=== PATIENT | female | born 1980 | race Caucasian/White ===

== ENCOUNTER 2017-08-28 03:09 | Emergency (ER) | payer OTHER ==
[~2017-08-28] VITALS: Ht 175.3 cm; Wt 113.4 kg
[~2017-08-28 03:09] MED LIST: AMLODIPINE BESY10 MG PO; CLONIDINE0.1 PO; COZAAR 25 MG TA25 M1 PO; INSULIN PUMP; LEVEMIR SUBQ; MAXZIDE-25 MG1 EACH PO; NOVOLIN N100 UNIT/1 SQ; PRINIVIL20 MG PO; PROCARDIA XL60 MG PO; TESSALON PERLE100 MG PO
[2017-08-28] MEDS ORDERED: METOPROLOL (03:17)
[2017-08-28] MEDS ORDERED: LISINOPRIL (03:17)
[2017-08-28 03:34] LABS: ABSOLUTE EOSINOPHILS 0.2 thou/uL (0.0-0.7); ABSOLUTE MONOCYTES 0.6 thou/uL (0.0-1.2); ABSOLUTE NEUTROPHILS 5.9 thou/uL (1.6-8.1); BASOPHILS 0.4 %; EOSINOPHILS 2.4 %; HEMATOCRIT 35.7 % (37.0-47.0); LYMPHOCYTES 23.1 %; MCH 31.2 pg (26.0-34.0); MCHC 33.7 g/dL (28.0-37.0); MCV 92.5 fL (80.0-100.0); MONOCYTES 6.7 %; MPV 7.5 fl. (7.2-11.1); NUCLEATED RBCS 0 /100WBC; PLATELET COUNT* 318 thou/uL (150-400); POLYS 67.4 %; RBC 3.87 mil/uL (4.20-5.00); RDW-CV 13.5 % (10.5-14.5); WBC 8.7 thou/uL (4.0-11.0)
[2017-08-28 03:43] LABS: ANION GAP 7 mmol/L (7-16); BUN 26 mg/dL (7-18); CALCIUM 8.4 mg/dL (8.5-10.1); CHLORIDE 107 mmol/L (98-107); CO2 26 mmol/L (21-32); CREATININE 1.5 mg/dL (0.6-1.3); GLUCOSE 336 mg/dL (70-99); POTASSIUM 4.3 mmol/L (3.5-5.1); SODIUM 140 mmol/L (136-145)
[2017-08-28 03:48] LABS: ALBUMIN 2.5 g/dL (3.4-5.0); ALKALINE PHOSPHATASE 71 U/L (46-116); SGOT 28 U/L (15-37); SGPT 44 U/L (30-65); TOTAL BILIRUBIN 0.8 mg/dL (<0.1-1.0); TOTAL PROTEIN 6.3 g/dL (6.4-8.2)
[2017-08-28] MEDS ORDERED: NORCO 5-325 TA1 EACH PO (04:06)
[2017-08-28] MEDS ORDERED: ZOFRAN ODT4 MG SUBLING (04:06)
[2017-08-28 04:12] VITALS: BP 155/108
== END 2017-08-28 04:17 | disposition home or self-care (01) ==
LOC: M.ERS 03:09
PROVIDERS: Family Medicine
DX: R51 Headache (principal); I10 Essential (primary) hypertension; E11.8 Type 2 diabetes mellitus with unspecified complications; Z88.8 Allergy status to other drugs, medicaments and biological substances; Z79.4 Long term (current) use of insulin

== ENCOUNTER 2018-01-20 03:20 | Emergency (ER) | payer OTHER ==
[~2018-01-20] VITALS: Ht 175.3 cm; Wt 120.2 kg
[~2018-01-20 03:20] MED LIST changes: +LISINOPRIL; +METOPROLOL; +NORCO 5-325 TA1 EACH PO; +ZOFRAN ODT4 MG SUBLING
[2018-01-20] MEDS ORDERED: LIPITOR10 MG PO (03:34)
[2018-01-20 03:46] LABS: ABSOLUTE EOSINOPHILS 0.4 thou/uL (0.0-0.7); ABSOLUTE LYMPHOCYTES 2.9 thou/uL (0.8-5.3); ABSOLUTE MONOCYTES 0.7 thou/uL (0.0-1.2); ABSOLUTE NEUTROPHILS 5.6 thou/uL (1.6-8.1); BASOPHILS 0.4 %; EOSINOPHILS 3.7 %; HEMATOCRIT 36.9 % (37.0-47.0); HEMOGLOBIN 12.3 gm/dL (12.0-15.0); LYMPHOCYTES 30.2 %; MCH 30.5 pg (26.0-34.0); MCHC 33.3 g/dL (28.0-37.0); MCV 91.7 fL (80.0-100.0); MONOCYTES 6.9 %; MPV 7.4 fl. (7.2-11.1); NUCLEATED RBCS 0 /100WBC; PLATELET COUNT* 321 thou/uL (150-400); POLYS 58.8 %; RBC 4.02 mil/uL (4.20-5.00); RDW-CV 13.7 % (10.5-14.5); WBC 9.6 thou/uL (4.0-11.0)
[2018-01-20 03:54] LABS: ANION GAP 6 mmol/L (7-16); BUN 28 mg/dL (7-18); CALCIUM 8.6 mg/dL (8.5-10.1); CHLORIDE 106 mmol/L (98-107); CO2 26 mmol/L (21-32); CREATININE 2.2 mg/dL (0.6-1.3); GLUCOSE 180 mg/dL (70-99); POTASSIUM 3.9 mmol/L (3.5-5.1); SODIUM 138 mmol/L (136-145)
[2018-01-20 03:59] LABS: ALBUMIN 2.6 g/dL (3.4-5.0); ALKALINE PHOSPHATASE 73 U/L (46-116); SGOT 28 U/L (15-37); SGPT 57 U/L (30-65); TOTAL BILIRUBIN 0.6 mg/dL (<0.1-1.0); TOTAL PROTEIN 6.6 g/dL (6.4-8.2)
[2018-01-20 06:21] VITALS: BP 187/97
== END 2018-01-20 06:21 | disposition home or self-care (01) ==
LOC: M.ERS 03:20
PROVIDERS: Family Medicine
DX: R51 Headache (principal); R11.2 Nausea with vomiting, unspecified; E11.9 Type 2 diabetes mellitus without complications; I10 Essential (primary) hypertension; Z88.8 Allergy status to other drugs, medicaments and biological substances

== ENCOUNTER → 2018-05-18 | Outpatient (CLI) | payer OTHER ==
[~2018-05-18] MED LIST changes: +LIPITOR10 MG PO
[2018-05-18 14:33] LABS: CALCIUM 8.8 mg/dL (8.5-10.1); CREATININE 2.6 mg/dL (0.6-1.3); POTASSIUM 4.9 mmol/L (3.5-5.1)
== END ==
LOC: M.LAB 14:07
PROVIDERS: Nurse Practitioner
DX: I10 Essential (primary) hypertension (principal)

== ENCOUNTER → 2018-05-25 | Outpatient (CLI) | payer OTHER | LOC: M.ULTRA 10:53 | DX: I65.23 Occlusion and stenosis of bilateral carotid arteries (principal) ==

== ENCOUNTER 2018-06-26 02:04 | Inpatient (IN) | payer OTHER, MEDICARE ==
[~2018-06-26] VITALS: Ht 175.3 cm; Wt 127.0 kg
[~2018-06-26 02:04] MED LIST changes: -METOPROLOL; +METOPROLOL SUC100 MG PO
[2018-06-26 02:08] VITALS: BP 181/95
[2018-06-26 02:33] LABS: ABSOLUTE BASOPHILS 0.1 thou/uL (0.0-0.2); ABSOLUTE EOSINOPHILS 0.2 thou/uL (0.0-0.7); ABSOLUTE LYMPHOCYTES 1.4 thou/uL (0.8-5.3); ABSOLUTE MONOCYTES 0.5 thou/uL (0.0-1.2); ABSOLUTE NEUTROPHILS 10.6 thou/uL (1.6-8.1); BASOPHILS 0.5 %; EOSINOPHILS 1.7 %; HEMATOCRIT 34.9 % (37.0-47.0); HEMOGLOBIN 11.8 gm/dL (12.0-15.0); LYMPHOCYTES 10.6 %; MCH 30.1 pg (26.0-34.0); MCHC 33.8 g/dL (28.0-37.0); MONOCYTES 3.7 %; MPV 7.4 fl. (7.2-11.1); NUCLEATED RBCS 0 /100WBC; PLATELET COUNT* 266 thou/uL (150-400); POLYS 83.5 %; RBC 3.93 mil/uL (4.20-5.00); RDW-CV 13.8 % (10.5-14.5); WBC 12.8 thou/uL (4.0-11.0)
[2018-06-26 02:57] LABS: ANION GAP 5 mmol/L (7-16); BUN 29 mg/dL (7-18); CALCIUM 8.4 mg/dL (8.5-10.1); CHLORIDE 105 mmol/L (98-107); CO2 27 mmol/L (21-32); CREATININE 2.9 mg/dL (0.6-1.3); GLUCOSE 196 mg/dL (70-99); POTASSIUM 4.7 mmol/L (3.5-5.1); SODIUM 137 mmol/L (136-145)
[2018-06-26 03:00] LABS: BE -10.5 mmol/L (-2 to +3); HCO3 14.3 mmol/L (22.0-26.0); pH 7.343 (7.340-7.450)
[2018-06-26 03:01] LABS: ALBUMIN 2.1 g/dL (3.4-5.0); ALKALINE PHOSPHATASE 92 U/L (46-116); LIPASE 82 U/L (73-393); SGOT 26 U/L (15-37); SGPT 33 U/L (30-65); TOTAL BILIRUBIN 0.5 mg/dL (<0.1-1.0); TOTAL PROTEIN 6.4 g/dL (6.4-8.2)
[2018-06-26 03:55] LABS: URINE BILIRUBIN NEGATIVE (Negative); URINE BLOOD 2+ (Negative); URINE CLARITY CLEAR; URINE COLOR YELLOW; URINE GLUCOSE-RANDOM 2+ (Negative); URINE KETONES NEGATIVE (Negative); URINE LEUKOCYTES-REFLEX NEGATIVE (Negative); URINE NITRITE-REFLEX NEGATIVE (Negative); URINE PROTEIN 3+ (Negative); URINE SPECIFIC GRAVITY 1.025 (1.005-1.030); URINE UROBILINOGEN 0.2 E.U./dl (0.2-1.0)
[2018-06-26 04:08] LABS: FINE GRANULAR CASTS 0-3 Few /LPF (None Seen); HYALINE CASTS 0-3 Few /LPF (None Seen); MUCUS 4-6 Moderate strn/LPF (None Seen); RBC CASTS 0-3 /LPF; SQUAMOUS 0-3 Few /LPF (0-3); TRANSITIONAL EPITHEL CELL 0-3 Few /LPF (None Seen); URINE WBC-REFLEX 0-5 Rare /HPF (0-5)
[2018-06-26 04:09] LABS: CRYSTALS None Seen /LPF (None Seen)
[2018-06-26 05:10] VITALS: BP 164/85
--- NOTE | 2018-06-26 07:33 | NUR ---
PT ARRIVED VIA STRETCHER FROM ED AT 0510 ADMITTED TO ROOM 304, PT IS ABULATORY WITH A STEADY GAIT, DENIES PAIN, DENIES NAUSEA VOMITING, ADMISSION ASSESSMENT COMPLETE, PT INTRODUCED TO SURROUNDINGS, ICE AND WATER PROVIDED, PT IN BED RESTING, NEPHROLOGY CONSULT HAS BEEN CALLED BY THIS NURSE AT 0730, DR GRIFFITHS EXPECTED TO SEE THIS PT TODAY
[2018-06-26 08:06] VITALS: BP 190/93
[2018-06-26 09:58] VITALS: BP 160/92
--- NOTE | 2018-06-26 11:20 | EKG ---
[place] [address] ELECTROCARDIOGRAM REPORT Name: NIYAELOINATARA HEATON Room: [address] ADM IN .R.#: [id number] Admission: 06/26/18 Attend Phys: Micheal Frederick, Discharge: Date of : 80 Report #: [id number] THIS REPORT FOR: //name// [facility] Test Date: 2018-06-26 Test Time: 10:12:28 Pat Name: TARA ALLRED Department: Room: [address] Gender: F Space And Storage Clerk: FAIZAN : 1980 Requested By: Joaquin Singh Order Number: [id number] Marnie MD: Jeet Nicole Measurements Intervals [place] Rate: 94 P: 67 WI: 178 QRS: 81 QRSD: 88 T: 31 QT: 392 QTc: 491 Interpretive Statements Sinus rhythm Probable left atrial enlargement Borderline prolonged QT interval Compared to ECG 06/02/2017 06:03:29 No significant changes Electronically Signed On 06-26-2018 11:20:09 AIR QUALITY INSTRUMENT SPECIALIST by Jeet Nicole [email or web address] <ELECTRONICALLY SIGNED> By: Jeet Nicole MD, [facility] 06/26/18 1120 1012 1012 Jeet Nicole MD, [facility] /EPI
[2018-06-26 16:00] VITALS: BP 198/102
--- NOTE | 2018-06-26 17:41 | NUR ---
PATIENT SOMEWHAT PROGRESSING TOWARDS GOALS. AOX4, COOPERATIVE, PLEASANT. DENIES PAIN THROUGHOUT SHIFT. SOME NAUSEA NOTED. ZOFRAN GIVEN Q4H PRN. NEPHROLOGY CONSULTED. LABS ORDERED AND COMPLETED, RENAL US AND DOPPLER TO BE COMPLETED TOMORROW. PATIENT BLOOD GLUCOSE LEVELS CONTINUE TO RISE. PATIENT REFUSING SUBQ INSULIN ADMINISTRATION, WANTS TO USE HER PUMP. THIS EVENING PATIENT STATED SHE THINKS HE PUMP IS LEAKING AND THATS WHY HER BLOOD SUGARS CONTINUE TO RISE. STATED HER DAUGHTER WILL BE BRINGING UP SUPPLIES TO FIX PUMP AND SHE CONTINUES TO REFUSE SUBQ INSULIN AT THIS TIME. PATIENT REPORTING HEART BURN. PANTOPRAZOLE, PEPCID, AND TUMS GIVEN. AWAITING PATIENT REPORT OF RELIEF.
[2018-06-26 20:30] VITALS: BP 149/78
--- NOTE | 2018-06-27 05:39 | NUR ---
PT SLEPT ON AND OFF OVERNIGHT. HAS DENIED N/V OR PAIN. ACCUCHECKS OBTAINED AND PT USING IMPLANTED INSULIN PUMP TO ADMINISTER INSULIN SHE WISHES. LATEST ACCUCHECK 0200 185. AM LABS. NPO SINCE MIDNIGHT FOR KIDNEY ULTRASOUND/DOPPLER TODAY. NEPHROLOGY CONSULTING. ABLE TO USE CALL LITE AND MAKE NEEDS KNOWN.
[2018-06-27] MEDS ORDERED: CLONIDINE0.1 PO (07:39)
[2018-06-27 07:58] LABS: ALBUMIN 1.7 g/dL (3.4-5.0); CALCIUM 8.3 mg/dL (8.5-10.1); PHOSPHORUS* 3.2 mg/dL (2.5-4.9); POTASSIUM 4.3 mmol/L (3.5-5.1)
[2018-06-27 08:00] VITALS: BP 192/101
--- NOTE | 2018-06-27 15:02 | NUR ---
Nutrition: Consult received. RD spoke with pt's RN today. Awaiting testing for ?lupus. Renal FXN was worsening. Pt is eating 100% of CHO controlled diet. Uses insulin pump. BG WNL, alb 1.7, prealb 20.8. No nutrition interventions needed at this time. Low risk.
[2018-06-27 15:46] VITALS: BP 171/86
--- NOTE | 2018-06-27 17:15 | NUR ---
PT PROGRESSING TOWARDS GOALS THIS SHIFT. RENAL US COMPLETED. REFER TO RESULTS. IVF INFUSING WITHOUT DIFFICULTY. STRICT I&O'S. BLADDER SCAN COMPLETED FOR POST VOID RESIDUAL AND WAS NEGATIVE FOR ANY URINE RETENTION. NO OTHER CONCERNS AT THIS TIME. CLWR. WCTM.
--- NOTE | 2018-06-27 17:22 | 2DMMODE ---
[place] [address] 2 D/M-MODE ECHOCARDIOGRAM Name: JOCELINEEDUARDOTARA SUDARSHAN Room: [address] IN .R.#: [id number] Admission: 06/26/18 Attend Phys: Micheal Melissa Discharge: Date of : 80 Date of Service: 06/27/18 1722 Report #: [id number] THIS REPORT FOR: //name// APPROVED REPORT Study performed: 06/27/2018 15:28:34 EXAM: Comprehensive 2D, Doppler, and color-flow Echocardiogram Patient Location: Bedside BSA: 2.38 HR: 73 bpm BP: 149/78 mmHg Other Information Study Quality: Good Indications Murmur 2D Dimensions IVSd: 16.77 (7-11mm) LVOT Diam: 16.57 (18-24mm) LVDd: 43.01 mm PWd: 12.99 (7-11mm) Ascending Ao: 31.87 (22-36mm) LVDs: 27.99 (25-40mm) Aortic Root: 28.97 mm Volumes Left Atrial Volume (Systole) LA ESV Index: 24.40 mL/m2 Aortic Valve AoV Peak Milton.: 1.65 m/s AO Peak Gr.: 10.89 mmHg LVOT Max P.01 mmHg AO Mean Gr.: 5.99 mmHg LVOT Mean P.21 mmHg LVOT Max V: 1.66 m/s AO V2 VTI: 33.16 cm LVOT Mean V: 1.04 m/s ROSEMARIE (VTI): 2.17 cm2 LVOT V1 VTI: 33.42 cm Mitral Valve E/A Ratio: 0.98 MV Decel. Time: 219.63 ms MV E Max Milton.: 0.87 m/s MV PHT: 63.69 ms MVA (PHT): 3.45 [place] [address] 2 D/M-MODE ECHOCARDIOGRAM Name: TARA ALLRED Room: [address] IN [facility]#: [id number] Admission: 06/26/18 Attend Phys: Micheal Melissa Discharge: Date of : 80 Date of Service: 06/27/18 1722 Report #: [id number] TDI E/Lateral E': 10.88 E/Medial E': 10.88 Medial E' Milton.: 0.08 m/s Lateral E' Milton.: 0.08 m/s Pulmonary Valve PV Peak Milton.: 1.25 m/s PV Peak Gr.: 6.29 mmHg Tricuspid Valve RAP Estimate: 5.00 mmHg TR Peak Gr.: 36.16 mmHg RVSP: 41.16 mmHg PA Pressure: 41.16 mmHg Left Ventricle The left ventricle is normal size. There is normal LV segmental wall motion. Moderate concentric left ventricular hypertrophy. Left ventricular systolic function is normal. The left ventricular ejection fraction is within the normal range. LVEF is 60-65%. Grade I - abnormal relaxation pattern. Right Ventricle The right ventricle is normal size. The right ventricular systolic function is normal. Atria Left atrium is moderately dilated. Right atrium is mildly dilated. Aortic Valve The aortic valve is normal in structure. No aortic regurgitation is present. There is no aortic valvular stenosis. Mitral Valve The mitral valve is normal in structure. Trace mitral regurgitation. No evidence of mitral valve stenosis. Tricuspid Valve The tricuspid valve is normal in structure. Trace tricuspid regurgitation. Pulmonic Valve The pulmonary valve is normal in structure. Trace pulmonic regurgitation[place] [address] 2 D/M-MODE ECHOCARDIOGRAM Name: CHALINOTARARhonda HEATON Room: [address] IN [facility]#: [id number] Admission: 06/26/18 Attend Phys: Micheal Melissa Discharge: Date of : 80 Date of Service: 06/27/18 1722 Report #: [id number] The aortic root is normal in size. IVC is normal in size and collapses >50% with inspiration. Pericardium There is no pericardial effusion. <Conclusion> The left ventricle is normal size. Moderate concentric left ventricular hypertrophy. Left ventricular systolic function is normal. The left ventricular ejection fraction is within the normal range. LVEF is 60-65%. Grade I - abnormal relaxation pattern. The right ventricle is normal size. Left atrium is moderately dilated. The aortic valve is normal in structure. The mitral valve is normal in structure. Trace mitral regurgitation. The tricuspid valve is normal in structure. IVC is normal in size and collapses >50% with inspiration. There is no pericardial effusion. There is normal LV segmental wall motion. <ELECTRONICALLY SIGNED> By: Jeet Nicole MD, FACC 06/27/181721 21 21 Jeet Nicole MD, FACC /INF
[2018-06-27 21:00] VITALS: BP 194/96
--- NOTE | 2018-06-27 22:59 | NUR ---
INITAL ASSESMENT COMPLETED AT 2100. PT DENIED PAIN OR DISCOMFORT AT THAT TIME. PT DENIED NAUSEA. ACCU CHECK 196. PT REGULATES HER OWN INSULIN VIA INSULIN PUMP. PT INFUSED 1.8 UNITS.
[2018-06-28 00:30] VITALS: BP 138/59
[2018-06-28 04:00] VITALS: BP 166/75
[2018-06-28 05:30] VITALS: BP 157/85
[2018-06-28 08:00] VITALS: BP 195/98
[2018-06-28 13:11] LABS: CALCIUM 8.5 mg/dL (8.5-10.1); POTASSIUM 4.5 mmol/L (3.5-5.1)
--- NOTE | 2018-06-28 13:51 | NUR ---
CALL PLACED TO DR RIVERO REGARDING URINE CULTURE RESULTS, NO NEW ORDERS.
[2018-06-28 16:41] VITALS: BP 140/75
[2018-06-28 19:39] VITALS: BP 125/65
[2018-06-29] VITALS: BP 168/86
--- NOTE | 2018-06-29 00:06 | NUR ---
KEO SPARROW COMPLETED AT 1930. PT'S IV IN LEFT WRIST INFILTRATED. IV DICONTINUED. 22 GUAGE SALINE LOCK TARTED IN RIGHT AC AFTER MULTIPLE ATTEMPTS. CALL LIGHT REACH, PT USING APPROPRIATELY.
[2018-06-29 01:00] VITALS: BP 129/65
[2018-06-29 04:30] VITALS: BP 149/63
--- NOTE | 2018-06-29 06:09 | NUR ---
PT AWAKE AT 0430 REPORTING NOT FEELING WELL. VITAL SIGNS OBTAINED AND ACCU CHECK DONE. PT'S BLOOD SUGAR 62 PER GLUCOMETER. PT GIVEN APPLE JUICE AND GRAHM CRACKERS. BLOOD SUGAR RECHECKED. PT WITHIN RANGE. VITAL SIGNS WITHIN NORMAL LIMITS. WILL CONTINUE TO MONITOR.
[2018-06-29 07:40] LABS: CALCIUM 7.9 mg/dL (8.5-10.1); CREATININE 3.1 mg/dL (0.6-1.3); POTASSIUM 4.4 mmol/L (3.5-5.1)
[2018-06-29 07:55] VITALS: BP 170/84
[2018-06-29 09:07] LABS: GLOMERULR BASEM MEMBRN AB 2 units (0-20)
[2018-06-29 11:10] LABS: ANTI-DNA SCREEN 5 IU/mL (0-9); ANTI-RNP <0.2 AI (0.0-0.9)
--- NOTE | 2018-06-29 12:33 | NUR ---
SW met with pt to complete initial assessment, introduce self, and pt known to SW. Pt father Moi in the room. Pt lives at home, normally independent with a good support system. No needs anticipated at this time.
[2018-06-29 15:56] VITALS: BP 132/73
--- NOTE | 2018-06-29 18:07 | NUR ---
PATIENT RESTING UP IN CHAIR. PATIENT HAS COMPLAINTS OF SWELLING TO LEGS. IV FLUIDS STOPPED AND ADVISED TO ELEVATE LEGS. PATIENT DENIES ANY PAIN. PATIENT USES INSULIN PUMP. PATIENT DENIES ANY NEEDS AT THIS TIME. CALL LIGHT WITHIN REACH. WILL CONTINUE TO MONITOR.
[2018-06-29 22:59] VITALS: BP 131/64
[2018-06-30] VITALS (21 sets, daily range): BP systolic 106–212; BP diastolic 57–99
--- NOTE | 2018-06-30 05:21 | NUR ---
PT SLEPT WELL THE FIRST PART OF SHIFT, AWAKE AND UP AD LUIS EARLY THIS MORNING. DENIES PAIN OR PROBLEMS. HAS BEEN NPO SINCE MIDNIGHT EXCEPT MED WITH SIP FOR IR RENAL BIOPSY TODAY. JORGE LUIS UNGER. ABLE TO USE CALL LITE AND MAKE NEEDS KNOWN. HS ACCUCHECK 90'S, NO INSULIN GIVEN.
[2018-06-30] MEDS ORDERED: NORVASC10 MG PO (12:48)
[2018-06-30] MEDS ORDERED: PANTOPRAZOLE SO40 M1 PO (12:48)
[2018-06-30] MEDS ORDERED: HYDRALAZINE 2525 MG PO ×2 (12:48→13:06)
[2018-06-30] MEDS ORDERED: PHENERGAN 25 MG25 M1 PO (12:48)
[2018-06-30] MEDS ORDERED: ONDANSETRON HCL4 M2 PO (12:48)
[2018-06-30] MEDS ORDERED: COMPAZINE10 MG PO (13:05)
--- NOTE | 2018-06-30 18:47 | NUR ---
PATIENT RESTING UP IN CHAIR. PATIENT HAD RENAL BIOPSY TODAY. PATIENT HAD COMPLAINTS OF SHORTNESS OF BREATH AND HYPOTENSION, IR NOTIFIED OF SYMPTOMS, NO NEW ORDERS. PATIENT DENIES ANY SHORTNESS OF BREATH AT THIS TIME AND BLOOD PRESSURE IS UP. PATIENT HAS GOOD APPETITE. PATIENT DENIES ANY NEEDS AT THIS TIME. CALL LIGHT WITHIN REACH. WILL CONTINUE TO MONITOR.
--- NOTE | 2018-07-01 05:27 | NUR ---
PT SLEPT WELL OVERNIGHT, RECEIVING TYLENOL AT HS FOR HEADACHE. AM LABS DRAWN. CASSIG CDI TO L FLANK RENAL BX SITE. UP AD LUIS IN ROOM. JORGE LUIS UNGER. HS ACCUCHECK 177, USING OWN INSULIN PUMP. ABLE TO USE CALL LITE AND MAKE NEEDS KNOWN. POSSIBLE DC HOME TODAY. AT BEDSIDE OVERNIGHT.
[2018-07-01 08:00] VITALS: BP 133/66; BP 155/65
[2018-07-01] MEDS ORDERED: HYDRALAZINE 2525 MG PO (11:08)
[2018-07-01 11:24] LABS: HEMATOCRIT 30.2 % (37.0-47.0); HEMOGLOBIN 10.2 gm/dL (12.0-15.0); MCH 30.6 pg (26.0-34.0); MCHC 33.7 g/dL (28.0-37.0); MCV 90.6 fL (80.0-100.0); MPV 7.7 fl. (7.2-11.1); RBC 3.34 mil/uL (4.20-5.00); RDW-CV 13.8 % (10.5-14.5); WBC 9.6 thou/uL (4.0-11.0)
[2018-07-01 11:38] LABS: CALCIUM 8.1 mg/dL (8.5-10.1); CREATININE 3.2 mg/dL (0.6-1.3); POTASSIUM 4.9 mmol/L (3.5-5.1)
[2018-07-01 12:08] VITALS: BP 145/66
--- NOTE | 2018-07-01 14:15 | NUR ---
DISCHARGE NOTE - REVIEWED DISCHARGE INSTRUCTIONS WITH PT. NO QUESTIONS. IV REMOVED S DIFFICULTY. ALL BELONGINGS SENT WITH PT.
--- NOTE | 2018-07-04 10:28 | CON ---
[address] [address] CONSULTATION Name: TARA ALLRED SUDARSHAN Room: [address] IN ..#: [id number] Admission: 06/26/18 Attend Phys: Micheal Frederick, Discharge: 07/01/18 Date of : 80 Report #: [id number] THIS REPORT FOR: //name// CC: Carol Frederick CONSULTING PHYSICIAN: Dr. Frederick. REASON FOR CONSULTATION: Acute kidney injury. HISTORY OF PRESENT ILLNESS: A 38-year-old female with a history of type 1 diabetes, admitted with persistent nausea and vomiting. Sugars have been poorly controlled. She is on numerous blood pressure medications and her blood pressures have been high. She attributes this to not being able to keep her medicines down. She denies any NSAID use. No new medications or antibiotics. No diarrhea and has no known underlying history of chronic kidney disease, appears to be comfortable at present time, has no other complaints. REVIEW OF SYSTEMS: Constitutional, psych, heme, eyes, ENT, respiratory, cardiac, GI, , endocrine, all negative except as documented above. PAST MEDICAL HISTORY: Insulin-dependent diabetes type 1 x 25 years, hypertension, history of . MEDICATIONS: Reviewed. SOCIAL HISTORY: No alcohol. FAMILY HISTORY: Not pertinent in this 38-year-old female. PHYSICAL EXAMINATION: VITAL SIGNS: Blood pressure 160/92, pulse 88, temperature 36.5. GENERAL: No acute distress. HEENT: Eyes: Extraocular movements are intact. Ears: Externally normal. CARDIOVASCULAR: Regular rate. LUNGS: No crackles. ABDOMEN: Soft. MUSCULOSKELETAL: Nontender. Positive edema. PSYCHIATRIC: Awake, alert. LABORATORY DATA: White cell count 12.8, hemoglobin 11.8, platelets 266. Sodium 137, potassium 4.7, chloride 105, bicarbonate 27, BUN 29, creatinine 2.9, glucose 196, calcium 8.4, albumin 2.1. UA noted. Acetone level was negative. ASSESSMENT: 1. Acute kidney injury. On the admission, creatinine of 2.9 in the setting of nausea, vomiting and losartan use. On 05/18, creatinine 2.6; 01/20, [place] [address] CONSULTATION Name: TARA ALLRED Room: [address]#: [id number] Admission: 06/26/18 Attend Phys: Micheal Frederick, Discharge: 07/01/18 Date of : 80 Report #: [id number] 2.2; in 08/2017, creatinine 1.5; in 2016, creatinine was 1.1. She tells me that these values were obtained at times, in which she was having nausea and vomiting. 2. Insulin-dependent diabetes type 1 x 25 years. 3. History of hypertension. 4. Hematuria. 5. Proteinuria. PLAN: 1. Continue IV fluids. 2. She is receiving IV blood pressure medication to help control blood pressures. 3. We will work up the hematuria. She is not on her period. We will check DUY, ANCA, anti-GBM. 4. Discontinue aluminum and magnesium hydroxide. 5. Check CPK. 6. Check renal ultrasound with Doppler and check a urine protein to creatinine ratio. 7. We will also check a urine screen and check labs again in the a.m. Thank you for requesting my opinion in the care and management of this patient. <ELECTRONICALLY SIGNED> By: Tacho Steele MD 07/04/18 1028 1351 1443Abridget Steele MD /nt
--- NOTE | 2018-07-07 10:08 | PATH ---
[address] [address] PATHOLOGY RPT PROCEDURE Name: NIYAELOINAMARIUM SUDARSHAN Room: [address] IN [facility]#: [id number] Admission: 06/26/18 Date of : 80 Discharge: 07/01/18 Report #: [id number] Path Case #: [id number] [facility] Accession Number: [id number] . 01 Material submitted: . LEFT RENAL . 01 Clinical history: . Renal failure . 02 Diagnosis: Special studies report received from [facility], [address] [place] [address], [place] [address], on case [id number], labeled with their number [id number], dated 07/01/2018. . Specimen submitted: By Nel Ugalde MD For Kidney, biopsy . DIAGNOSIS: Nodular Diabetic Glomerulosclerosis, Advanced. . Global Glomerulosclerosis (), . Interstitial Fibrosis and Tubular Atrophy, Severe. . Arteriosclerosis and Arteriolar Hyalinosis, Moderate to Severe. . Clinical History: The patient is a 38 year-old female with lpjdl-pb-xwitihz kidney disease and nephrotic range proteinuria. The patient has a history of type 1 diabetes and hypertension (currently accelerated). Serum creatinine is 3.1 (1.5 in August). Urine protein/creatinine ratio is 14 g. . Gross Description: Received from [facility] via [facility] are two specimen bottles, one contains formalin and the other contains Vern's fixative. The bottles are labeled with the patient's name (Marium Allred). . Received in formalin is one piece of strong tissue measuring 1.3 x 0.1 x 0.1 cm (fatty ends, dissected, took both ends). Two ends are submitted for electron microscopy and the remainder of the tissue is submitted in its entirety for light microscopy. . Received in Vern's fixative are four pieces of tissue measuring 0.8 x 0.1 x 0.1 cm, 0.4 x 0.1 x 0.1 cm (fatty end), 1.7 x 0.1 x 0.1 cm (fatty, thin, segmented end), and 0.1 x 0.1 x 0.1 cm. The specimen is submitted in its entirety [place] [address] PATHOLOGY RPT PROCEDURE Name: MARIUM ALLRED SUDARSHAN Room: [address] IN M.R.#: [id number] Admission: 06/26/18 Date of : 80 Discharge: 07/01/18 Report #: [id number] Path Case #: [id number] Microscopic Description: LIGHT MICROSCOPY: . Sections of kidney are represented almost entirely by cortex and show up to 19 glomeruli, 17 of which are globally sclerotic. The two remaining glomeruli are enlarged and show global moderate to severe mesangial matrix expansion with small nodule formation and mild to moderate mesangial hypercellularity. There is no endocapillary proliferation, fibrinoid necrosis, or crescent formation. The glomerular basement membranes are without holes, spikes or double contours on silver stain. There is severe interstitial fibrosis and tubular atrophy involving approximately 80% of the cortex. There is an interstitial mixed inflammatory infiltrate present within the areas of fibrosis. The tubular epithelium shows basement membrane thickening and cytoplasmic swelling with reactive nuclear changes. There are no atypical tubular casts. There is moderate arteriolar hyalinosis. Arteries show moderate to severe intimal fibrosis. There is no arteritis present. Toluidine blue-stained sections prepared for electron microscopy show five glomeruli, three of which are globally sclerotic. The remaining glomeruli show mesangial matrix expansion. . Standard of care requirements for proper analysis of renal biopsies mandates serial sections, and PAS, Ramirez silver, trichrome and SMMT stains at multiple levels. PAS stains are used to evaluate various aspects of the glomerular, tubular, and vascular basement membranes. Ramirez silver stains are used to evaluate thickening, reduplication, "spiking" or "bubbling" of the glomerular basement membrane. Toluidine blue stained sections highlight glomerular basement membranes and demonstrates unusual types of deposits. It also reveals details of tubular epithelial cells and aids in the analysis of vascular lesions. Yemi trichrome stains are used to evaluate interstitial fibrosis and basement membrane deposits. The SMMT stain helps evaluate basement membrane changes, immune deposits and tubulointerstitial scarring. Controls are routinely run on all special stains and are verified for acceptability. A review of the technical quality of routine slides is made before results are reported. . . IMMUNOFLUORESCENCE: Multiple cores of renal parenchyma are present for evaluation showing up to 22 glomeruli, 12 of which are globally sclerotic. The sections are stained for IgG, IgM, IgA, C3, C1q, albumin, fibrinogen, kappa and lambda light chains. The glomeruli show nonspecific, mesangial/mesangial staining by IgM (1+). All other stains are negative within the glomeruli. There is no significant extraglomerular staining. Tomas De Castro and lambda stain equally throughout the tubulointerstitium. . Positive and negative controls are run on all immunofluorescent stains and are verified for acceptability before results are reported. Internal antigens serve as positive controls. . [address] [address] PATHOLOGY RPT PROCEDURE Name: NIYAELOINAMARIUM SUDARSHAN Room: [address] IN ..#: [id number] Admission: 06/26/18 Date of : 80 Discharge: 07/01/18 Report #: [id number] Path Case #: [id number] ELECTRON MICROSCOPY: Two blocks are prepared. Ultrastructural evaluation of a glomerulus reveals basement membranes which are variably thickened. There is mesangial matrix expansion present. Though the mesangium contains ill-defined densities, no definite immune-type electron-dense deposits are present. No immune-type electron-dense deposits are identified along the capillary johnson. There is severe epithelial foot process effacement. The tubular basement membranes without deposits. . Special procedures including immunofluorescence and electron microscopy correlate with the light microscopy findings. Note: Some of the tests reported here may have been developed and performance characteristics determined by [facility]. They have not been cleared or approved by the U.S. Food and Drug Administration (FDA). The FDA does not require this test to go through premarket FDA review. This test is used for clinical purposes. It should not be regarded as investigational or for research. [facility] is certified under the Clinical Laboratory Improvement Amendments of 1988 (CLIA) as qualified to perform high complexity clinical laboratory testing. . Physician/Physician's office called on 07/01/2018 at 4:06 PM Central. . *I have reviewed the clinical history, the pertinent gross findings, all microscopic materials, discussed the case with the clinician when appropriate, and have rendered the final diagnosis. . Final Diagnosis performed by Katerin Salazar M.D. Electronically signed 07/01/2018 5:20:36 PM . . A complete copy of the report is on file. . Professional and technical services performed by [facility] at [address] [place] [address], [address], [facility][note 3]. . ([facility] 07/06/2018) . [facility]/07/06/2018 . 02 Electronically signed: . Loyd Valladares MD, Pathologist NPI- [id number] . 01 Gross description: . The specimen is received in formalin labeled "Marium Allred, left renal". Received is a single needle core [place] [address] PATHOLOGY RPT PROCEDURE Name: MARIUM ALLRED [facility] Room: [address] IN M.R.#: [id number] Admission: 06/26/18 Date of : 80 Discharge: 07/01/18 Report #: [id number] Path Case #: [id number] measuring 1.1 cm in length by 0.1 cm in diameter. The specimen is forwarded to an outside laboratory for further processing. . The specimen is received in Vern's fixative, labeled "Marium Allred, left renal". Received are multiple needle cores of pink-strong soft tissue ranging from 0.2 to 0.8 cm in length and measuring 0.1 cm each in diameter. The specimen is forwarded to an outside laboratory for direct immunofluorescence studies. (TSD; 06/30/2018) TOB/TOB . 02 Pathologist provided ICD-10: N19 . 02 CPT . 116724 Specimen Comment: A courtesy copy of this report has been sent to Specimen Comment: [phone], , , . Specimen Comment: Report sent to ,DR CHILDERSS,DR CREWS / DR UGALDE Specimen Comment: A duplicate report has been generated due to demographic updates. Performed at: [address] [facility], [place] [id number] MD Darryl Sheppard MD Phone: [phone] Performed at: 02 [facility] [address], [place], [place] [id number] MD Loyd Valladares MD Phone: [phone]
== END 2018-07-01 14:15 | disposition home or self-care (01) | DRG 684 ==
LOC: M.ERS 02:04 → M.3W 04:03 → M.TBA-ER 04:03 → M.3W 05:21
PROVIDERS: Internal Medicine; Internal Medicine Nephrology; Personal Emergency Response Attendant; ADMIT Family Medicine
PROC: 0TB13ZX Excision of Left Kidney, Percutaneous Approach, Diagnostic (ICD-10-PCS; principal; 2018-06-30)
DX: N17.9 Acute kidney failure, unspecified (principal); E10.9 Type 1 diabetes mellitus without complications; I10 Essential (primary) hypertension; R31.9 Hematuria, unspecified; Z79.4 Long term (current) use of insulin; Z88.8 Allergy status to other drugs, medicaments and biological substances; Z79.899 Other long term (current) drug therapy

== ENCOUNTER 2018-09-28 21:40 | Inpatient (IN) | payer OTHER, MEDICARE ==
[~2018-09-28] VITALS: Ht 175.3 cm; Wt 139.3 kg
--- NOTE | ~2018-09-28 | CON ---
[address] [address] CONSULTATION Name: CHALINOTARARhonda HEATON Room: [address] IN ..#: [id number] Admission: 09/28/18 Attend Phys: Armin Chew MD Discharge: Date of : 80 Report #: [id number] THIS REPORT FOR: //name// CC: Dr. Ivette Davidson DO DICTATED BY: Miesha Dent [facility] DATE OF SERVICE: 09/30/2018 REASON FOR CONSULTATION: Anemia. Please note, at the time of this dictation, the patient was seen and physically examined by myself. HISTORY OF PRESENT ILLNESS: This is a 38-year-old female who presented to the Emergency Room with increased lethargy, fatigue and a cough to the point of vomiting. She has shortness of breath with any exertion as well. She denies any vomiting and has never had any overt bright red blood or coffee ground emesis. She is not having any abdominal pain and has not noticed any overt bleeding either. She states her bowels move daily, soft and formed with no evidence of any bright red blood or melanotic stool. She has never seen GI before and never had any endoscopy studies done. ALLERGIES: LISINOPRIL AND PHENERGAN. MEDICATIONS FROM HOME: Metoprolol and atorvastatin and she has an insulin pump. PAST MEDICAL HISTORY: Insulin-dependent diabetic, chronic kidney disease, stage 4 and hypertension. PAST SURGICAL HISTORY: Two C-sections and ankle debridement in the past. FAMILY HISTORY: Negative for any GI or female cancers. SOCIAL HISTORY: Denies any tobacco, used in the past. No alcohol or illegal drug use. REVIEW OF SYSTEMS: Twelve-point review of systems is essentially negative except what is mentioned in the HPI. The patient is being considered for a kidney transplant. PHYSICAL EXAMINATION: VITAL SIGNS: Temperature 36.6, pulse 76, respirations 19, [place] [address] CONSULTATION Name: TARA ALLRED Room: [address] IN [facility]#: [id number] Admission: 09/28/18 Attend Phys: Armin Chew MD Discharge: Date of : 80 Report #: [id number] 166/84. HEART: Regular rate and rhythm. LUNGS: Diminished with crackles, particularly on the right base. ABDOMEN: Soft, positive bowel sounds in all 4 quadrants with no masses or tenderness noted. LABORATORY DATA: Hemoglobin when she came in was 9.8, she is down to 8.3; white count is 5.2, platelets 200. BUN is 48, creatinine 5.4 with a GFR of 9. Iron is 21, TIBC is 187 and percentage saturation is 11. Influenza was all negative. CT of the chest showed patchy nodular infiltrates in the right lung field. IMPRESSION: 1. Anemia, no overt bleeding. 2. Pneumonia. 3. Chronic kidney disease stage 4, recommending a kidney transplant. 4. Type 1 diabetes. PLAN: In discussing with the patient, she wants to do EGD and colonoscopy. Her workup all to be done as an outpatient. We will contact her once she gets over her pneumonia and plan to do this at that time. Thank you for allowing us to participate in this patient's care. Please do not hesitate to call with any questions in regard to this consult. By: [id number] Dawson DO /cristina
--- NOTE | ~2018-09-28 | CON ---
[address] [address] CONSULTATION Name: JOCELINEGEETARA SUDARSHAN Room: [address] IN M.R.#: [id number] Admission: 09/28/18 Attend Phys: Armin Chew MD Discharge: Date of : 80 Report #: [id number] THIS REPORT FOR: //name// CC: Armin Davidson TYPE OF REPORT: Nephrology consultation. CONSULTING PHYSICIAN: Armin Chew M.D. REASON FOR CONSULTATION: Acute kidney injury. HISTORY OF PRESENT ILLNESS: A 38-year-old female with a history of chronic kidney disease stage 4 secondary to diabetic nephropathy and type 1 diabetes, on insulin pump. 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 She has had some nausea and vomiting related to the cough, which began yesterday. Up until then, she had no vomiting and had maintained a good appetite. No urinary changes. She otherwise feels well, has no complaints. She actually had an upcoming appointment to see me in the office and had seen our nurse practitioner in the office back in June and at that time, she was given a referral for kidney transplant evaluation. REVIEW OF SYSTEMS: Constitutional, psych, heme, eyes, ENT, respiratory, cardiac, GI, , endocrine, all negative except as documented above. PAST MEDICAL HISTORY: Insulin-dependent diabetes type 1 time 25+ years, hypertension and chronic kidney disease stage 4. SOCIAL HISTORY: Former smoker. FAMILY HISTORY: Not pertinent in this 38-year female. CURRENT MEDICATIONS: Reviewed. PHYSICAL EXAMINATION: VITAL SIGNS: Blood pressure 146/66, pulse 89, respirations 18 and temperature 36.7. GENERAL: No acute distress. EYES: Open. EARS: Externally normal. CARDIOVASCULAR: Regular rate and rhythm. No rubs. LUNGS: Diminished breath sounds. ABDOMEN: Soft. MUSCULOSKELETAL: Nontender. PSYCHIATRIC: Awake, [place] [address] CONSULTATION Name: TARA ALLRED Room: [place] [address] ADM IN [facility].#: [id number] Admission: 09/28/18 Attend Phys: Armni Chew MD Discharge: Date of : 80 Report #: [id number] LABORATORY DATA: White cell count 5.2, hemoglobin 8.3 and platelets 200. Sodium 136, potassium 3.9, chloride 104, bicarbonate 17, BUN 54, creatinine 5.8, glucose 299, calcium 8.6, phosphorus 5.6 and magnesium 1.6. ASSESSMENT: 1. Acute kidney injury with admission creatinine of 6 in the setting of cough, nausea, vomiting and right infiltrate on chest x-ray. On July 01, creatinine was 3.2. UA is noted. On May 2018, anti-double stranded DNA, ANCA and anti-GBM were negative. 2. Chronic kidney disease, at least stage 4 with May 2018 kidney biopsy showing advanced diabetic kidney disease with severe atrophy and interstitial fibrosis, moderate to severe arterial sclerosis and 32/46 glomeruli, which were globally sclerosed. In May 2018, kidney ultrasound was also noted. 3. Hypertension with May 2018, renal Doppler negative for renal artery stenosis. 4. Blood on UA, not new. No rbc's. 5. Anemia. Admission hemoglobin was 9.8, down to 8.3 on September 29. 6. Metabolic acidosis. 7. Hypomagnesemia. 8. Hypoalbuminemia with an albumin of 2.1. 9. Nephrotic range proteinuria secondary to diabetic kidney disease with May 2018. Urine protein to creatinine ratio 14.7. 10. Insulin-dependent diabetes type 1. She is on an insulin pump. 11. Hyperphosphatemia with a phosphorus of 5.6 on September 29. 12. Right lung infiltrate on chest x-ray with a productive cough. PLAN: 1. She is on normal saline at 100 mL an hour. 2. Discontinue magnesium, aluminum hydroxide, milk of magnesia. 3. Check CK. She is not on her period at present time. 4. Replace magnesium. 5. Start Epo for the anemia also check iron studies. 6. No dietary protein restriction and start Nepro 1 can t.i.d. 7. PhosLo has been ordered. She may not need the dose has been prescribed and we will follow phosphorus levels. 8. No acute indications for dialysis at this time. She was asymptomatic until recent infectious symptoms began. I do not believe she is uremic at this time and hopefully renal function will improve with medical management. CT chest has been ordered and we will defer any antibiotics to the primary service. 9. Encouraged the patient to contact the transplant center. She is interested in the [facility] in particular so that the evaluation process for a transplant can begin. 10. I also discussed with her possibility of needing dialysis. We discussed both, hemoglobin and peritoneal dialyses. [place] [address] [place] [address] CONSULTATION Name: TARA ALLRED Room: [address] IN .R.#: [id number] Admission: 09/28/18 Attend Phys: Armin Chew MD Discharge: Date of : 80 Report #: [id number] Thank you for requesting my opinion in the care and management of this patient. By: 1104 0418Abridget Steele MD /nt
[~2018-09-28 21:40] MED LIST changes: +COMPAZINE10 MG PO; +HYDRALAZINE 2525 MG PO; -INSULIN PUMP; +INSULIN PUMP SUBQ; +NORVASC10 MG PO; +ONDANSETRON HCL4 M2 PO; +PANTOPRAZOLE SO40 M1 PO; +PHENERGAN 25 MG25 M1 PO
[2018-09-28 21:47] VITALS: BP 131/86
[2018-09-28 22:35] LABS: ABSOLUTE EOSINOPHILS 0.1 thou/uL (0.0-0.7); ABSOLUTE MONOCYTES 0.5 thou/uL (0.0-1.2); ABSOLUTE NEUTROPHILS 4.2 thou/uL (1.6-8.1); BASOPHILS 0.6 %; EOSINOPHILS 1.4 %; HEMATOCRIT 28.3 % (37.0-47.0); HEMOGLOBIN 9.8 gm/dL (12.0-15.0); LYMPHOCYTES 17.9 %; MCH 30.8 pg (26.0-34.0); MCHC 34.5 g/dL (28.0-37.0); MCV 89.2 fL (80.0-100.0); MONOCYTES 8.2 %; MPV 7.8 fl. (7.2-11.1); NUCLEATED RBCS 0 /100WBC; PLATELET COUNT* 214 thou/uL (150-400); POLYS 71.9 %; RBC 3.17 mil/uL (4.20-5.00); RDW-CV 13.7 % (10.5-14.5); WBC 5.8 thou/uL (4.0-11.0)
[2018-09-28 22:40] LABS: BE -5.4 mmol/L (-2 to +3); PCO2 VENOUS 43.1 mmHg (41.0-51.0); PO2 VENOUS 37.1 mmHg (35.0-45.0)
[2018-09-28 22:44] LABS: URINE BILIRUBIN NEGATIVE (Negative); URINE BLOOD 3+ (Negative); URINE CLARITY CLEAR; URINE COLOR YELLOW; URINE GLUCOSE-RANDOM 3+ (Negative); URINE KETONES NEGATIVE (Negative); URINE LEUKOCYTES-REFLEX NEGATIVE (Negative); URINE NITRITE-REFLEX NEGATIVE (Negative); URINE PROTEIN 3+ (Negative); URINE UROBILINOGEN 0.2 E.U./dl (0.2-1.0)
[2018-09-28 22:50] LABS: BACTERIA-REFLEX 1-9 Few /HPF (None Seen); CASTS None Seen /LPF (None Seen); CRYSTALS None Seen /LPF (None Seen); SQUAMOUS 4-10 Moderate /LPF (0-3); URINE RBC 0-2 Rare /HPF (0-2); URINE WBC-REFLEX 0-5 Rare /HPF (0-5)
[2018-09-28 22:53] LABS: ALBUMIN 2.1 g/dL (3.4-5.0); ALKALINE PHOSPHATASE 86 U/L (46-116); ANION GAP 12 mmol/L (7-16); BUN 56 mg/dL (7-18); CHLORIDE 103 mmol/L (98-107); CO2 21 mmol/L (21-32); GLUCOSE 262 mg/dL (70-99); LIPASE 93 U/L (73-393); POTASSIUM 4.1 mmol/L (3.5-5.1); SGOT 40 U/L (15-37); SGPT 40 U/L (30-65); SODIUM 136 mmol/L (136-145); TOTAL BILIRUBIN 0.5 mg/dL (<0.1-1.0); TOTAL PROTEIN 6.4 g/dL (6.4-8.2); TROPONIN-I LEVEL <0.06 ng/mL (<0.06)
[2018-09-29] VITALS (7 sets, daily range): BP systolic 146–198; BP diastolic 66–102
[2018-09-29 00:32] LABS: INFLUENZA A ANTIGEN None Detected (None Detect); INFLUENZA B ANTIGEN None Detected (None Detect)
[2018-09-29 08:48] LABS: ABSOLUTE LYMPHOCYTES 0.6 thou/uL (0.8-5.3); ABSOLUTE MONOCYTES 0.4 thou/uL (0.0-1.2); ABSOLUTE NEUTROPHILS 4.1 thou/uL (1.6-8.1); BASOPHILS 0.5 %; HEMATOCRIT 25.2 % (37.0-47.0); HEMOGLOBIN 8.3 gm/dL (12.0-15.0); LYMPHOCYTES 12.2 %; MCH 29.9 pg (26.0-34.0); MCHC 33.2 g/dL (28.0-37.0); MONOCYTES 7.9 %; MPV 7.9 fl. (7.2-11.1); NUCLEATED RBCS 0 /100WBC; PLATELET COUNT* 200 thou/uL (150-400); POLYS 79.4 %; RBC 2.79 mil/uL (4.20-5.00); RDW-CV 14.1 % (10.5-14.5); WBC 5.2 thou/uL (4.0-11.0)
[2018-09-29 08:59] LABS: CALCIUM 7.6 mg/dL (8.5-10.1); CREATININE 5.8 mg/dL (0.6-1.3); MAGNESIUM 1.6 mg/dL (1.8-2.4); PHOSPHORUS* 5.6 mg/dL (2.5-4.9); POTASSIUM 3.9 mmol/L (3.5-5.1); URIC ACID* 6.3 mg/dL (2.6-7.2)
--- NOTE | 2018-09-29 17:05 | EKG ---
[place] [address] ELECTROCARDIOGRAM REPORT Name: CHALINOTARA HEATON Room: [place] [address] ADM IN [facility].#: [id number] Admission: 09/28/18 Attend Phys: Armin Chew MD Discharge: Date of : 80 Report #: [id number] THIS REPORT FOR: //name// [facility] ED Test Date: 2018-09-28 Test Time: 22:02:16 Pat Name: TARA ALLRED Department: Room: [facility] Gender: F Mill Recorder: Diego MARLEY : 1980 Requested By: Villa Maloney Order Number: [id number] MD: Antony Yang Measurements Intervals [place] Rate: 78 P: 23 [place]: 180 QRS: 62 QRSD: 102 T: 68 QT: 428 QTc: 488 Interpretive Statements Sinus rhythm Baseline wander in lead(s) V1 Compared to ECG 06/26/2018 10:12:28 No significant changes Electronically Signed On 09-29-2018 17:04:53 CDT by Antony Yang [email or web address] <ELECTRONICALLY SIGNED> By: Antony Yang MD, [facility] 09/29/18 1704 01 01 Antony Yang MD, [facility] /EPI
[2018-09-30] VITALS: BP 175/84
[2018-09-30 04:00] VITALS: BP 165/85
[2018-09-30 05:23] LABS: ALBUMIN 1.7 g/dL (3.4-5.0); CALCIUM 8.1 mg/dL (8.5-10.1); CREATININE 5.4 mg/dL (0.6-1.3); MAGNESIUM 1.8 mg/dL (1.8-2.4); PHOSPHORUS* 5.1 mg/dL (2.5-4.9)
[2018-09-30 05:53] LABS: % SATURATION 11 % (20-39); IRON 21 ug/dL (50-175)
[2018-09-30 07:55] VITALS: BP 166/80
[2018-09-30 19:15] VITALS: BP 145/61
[2018-09-30 21:25] VITALS: BP 150/75
[2018-10-01 04:00] VITALS: BP 148/78
[2018-10-01 04:50] LABS: HEMATOCRIT 22.9 % (37.0-47.0); HEMOGLOBIN 7.9 gm/dL (12.0-15.0); MCH 30.6 pg (26.0-34.0); MCHC 34.5 g/dL (28.0-37.0); MCV 88.6 fL (80.0-100.0); MPV 7.9 fl. (7.2-11.1); PLATELET COUNT* 176 thou/uL (150-400); RBC 2.59 mil/uL (4.20-5.00); RDW-CV 14.1 % (10.5-14.5); WBC 4.9 thou/uL (4.0-11.0)
[2018-10-01 05:15] LABS: ALBUMIN 1.6 g/dL (3.4-5.0); CALCIUM 7.9 mg/dL (8.5-10.1)
[2018-10-01 05:22] LABS: CREATININE 5.7 mg/dL (0.6-1.3)
[2018-10-01 06:17] VITALS: BP 143/71
[2018-10-01 08:30] VITALS: BP 167/87
[2018-10-01 09:08] LABS: BASOPHILS 0.3 %; EOSINOPHILS 3.6 %; LYMPHOCYTES 36.2 %; MONOCYTES 10.7 %; NUCLEATED RBCS 0 /100WBC; POLYS 49.2 %
[2018-10-01 09:09] LABS: ABSOLUTE EOSINOPHILS 0.2 thou/uL (0.0-0.7); ABSOLUTE LYMPHOCYTES 1.8 thou/uL (0.8-5.3); ABSOLUTE MONOCYTES 0.5 thou/uL (0.0-1.2); ABSOLUTE NEUTROPHILS 2.4 thou/uL (1.6-8.1)
[2018-10-01 12:05] VITALS: BP 143/72
[2018-10-01 19:10] VITALS: BP 154/71
[2018-10-02 05:00] LABS: HEMATOCRIT 23.2 % (37.0-47.0); MCH 30.4 pg (26.0-34.0); MCHC 34.3 g/dL (28.0-37.0); MCV 88.6 fL (80.0-100.0); RBC 2.62 mil/uL (4.20-5.00); RDW-CV 14.2 % (10.5-14.5); WBC 6.2 thou/uL (4.0-11.0)
[2018-10-02 05:40] LABS: ALBUMIN 1.7 g/dL (3.4-5.0); CALCIUM 8.3 mg/dL (8.5-10.1); CREATININE 5.9 mg/dL (0.6-1.3); PHOSPHORUS* 4.6 mg/dL (2.5-4.9); POTASSIUM 4.7 mmol/L (3.5-5.1)
[2018-10-02 05:42] LABS: CREATININE 5.8 mg/dL (0.6-1.3); MAGNESIUM 2.1 mg/dL (1.8-2.4); POTASSIUM 4.7 mmol/L (3.5-5.1)
[2018-10-02 08:15] VITALS: BP 156/75
[2018-10-02 15:25] VITALS: BP 171/85
[2018-10-02 19:35] VITALS: BP 164/81
[2018-10-03 04:41] LABS: ABSOLUTE LYMPHOCYTES 1.3 thou/uL (0.8-5.3); MPV 7.9 fl. (7.2-11.1)
[2018-10-03 04:43] LABS: ABSOLUTE EOSINOPHILS 0.3 thou/uL (0.0-0.7); ABSOLUTE MONOCYTES 0.7 thou/uL (0.0-1.2); ABSOLUTE NEUTROPHILS 4.4 thou/uL (1.6-8.1); BASOPHILS 0.4 %; EOSINOPHILS 4.1 %; HEMATOCRIT 23.8 % (37.0-47.0); LYMPHOCYTES 19.4 %; MCH 30.1 pg (26.0-34.0); MCHC 33.8 g/dL (28.0-37.0); MCV 89.2 fL (80.0-100.0); NUCLEATED RBCS 0 /100WBC; PLATELET COUNT* 230 thou/uL (150-400); POLYS 66.1 %; RBC 2.66 mil/uL (4.20-5.00); RDW-CV 13.9 % (10.5-14.5); WBC 6.6 thou/uL (4.0-11.0)
[2018-10-03 04:50] LABS: ALBUMIN 1.8 g/dL (3.4-5.0); CALCIUM 8.3 mg/dL (8.5-10.1); CREATININE 5.8 mg/dL (0.6-1.3); PHOSPHORUS* 4.6 mg/dL (2.5-4.9); POTASSIUM 4.9 mmol/L (3.5-5.1)
[2018-10-03 05:15] VITALS: BP 156/80
[2018-10-03 08:00] VITALS: BP 133/57
[2018-10-03] MEDS ORDERED: CEFDINIR300 MG PO (12:35)
[2018-10-03] MEDS ORDERED: TESSALON PERLE100 MG PO (12:35)
[2018-10-03] MEDS ORDERED: IPRAT-ALBUT 0.5-3 ML INH (12:35)
[2018-10-03 14:20] VITALS: BP 133/57
== END 2018-10-03 15:12 | disposition home or self-care (01) | DRG 177 ==
LOC: M.ERS 21:40 → M.TBA-ER 23:14 → M.2W 23:14
PROVIDERS: Family Medicine; Internal Medicine; Internal Medicine Nephrology; ADMIT Internal Medicine
DX: J15.6 Pneumonia due to other Gram-negative bacteria (principal); N17.0 Acute kidney failure with tubular necrosis; E87.2 Acidosis; I12.0 Hypertensive chronic kidney disease with stage 5 chronic kidney disease or end stage renal disease; N18.5 Chronic kidney disease, stage 5; E10.22 Type 1 diabetes mellitus with diabetic chronic kidney disease; E83.42 Hypomagnesemia; E83.39 Other disorders of phosphorus metabolism; D63.1 Anemia in chronic kidney disease; D50.9 Iron deficiency anemia, unspecified; Z98.891 History of uterine scar from previous surgery; Z79.4 Long term (current) use of insulin; Z87.891 Personal history of nicotine dependence; Z79.899 Other long term (current) drug therapy; Z88.8 Allergy status to other drugs, medicaments and biological substances; Z82.49 Family history of ischemic heart disease and other diseases of the circulatory system

== ENCOUNTER 2018-11-02 11:11 | Inpatient (IN) | payer OTHER, MEDICARE ==
[2018-11-02] VITALS (8 sets, daily range): BP systolic 149–186; BP diastolic 73–89
[~2018-11-02] VITALS: Ht 175.3 cm; Wt 142.4 kg
--- NOTE | ~2018-11-02 | CON ---
[address] [address] CONSULTATION Name: NIYAELOINATARA SUDARSHAN Room: [address] IN ..#: [id number] Admission: 11/02/18 Attend Phys: George Kearney MD Discharge: Date of : 80 Report #: [id number] THIS REPORT FOR: //name// CC: Michelle Kearney DATE OF SERVICE: 11/03/2018 CONSULTING PHYSICIAN: George Kearney MD. REASON FOR NEPHROLOGY CONSULTATION: Chronic kidney disease, stage 5. The patient came in with nausea and vomiting. Admission diagnosis is also high potassium, elevated troponin and shortness of breath. HISTORY OF PRESENT ILLNESS: This is a 38-year-old female with past medical history of chronic kidney disease, stage 5 now; etiology diabetes and hypertension; history of diabetes type 1, came in with generalized weakness, shortness of breath and she had an episode of nausea and vomiting yesterday. She was here last month with pneumonia. Creatinine was running around 3.2 towards the end of June, but lately since September beginning, it has been running between 5.8-6. The patient states that her sugars have been controlled at home. Her blood sugars were in 300s when she came in yesterday and she required insulin drip. She was also given some IV fluids overnight. Her creatinine was 6.2 yesterday, down to 6.1. Her potassium was 6.1 yesterday, down to 5.3 now. She has been seeing Dr. Steele from [facility] who is one of my partners and is in the process of getting set up for home dialysis. She has been referred for PD catheter placement last Wednesday, but has not heard yet from Dr. Block's office. Her biopsy in June of this year showed nodular glomerulosclerosis with severe interstitial fibrosis and tubular atrophy with severe arteriosclerosis. She is also supposed to get a nuclear stress test today because her troponin was elevated and Cardiology is monitoring her. Nausea and vomiting has resolved. ALLERGIES: TO LISINOPRIL, PROMETHAZINE. REVIEW OF SYSTEMS: As mentioned in history of present illness. She is not having any shortness of breath right now. Otherwise, 10-point review of systems is negative. HOME MEDICATIONS: Include ipratropium-albuterol, hydralazine, nifedipine, ondansetron, pantoprazole, amlodipine, prochlorperazine. PAST MEDICAL AND SURGICAL HISTORY: Includes diabetes mellitus type 1; section; bilateral ankle debridement, post brown recluse bite; hypertension; [place] [address] CONSULTATION Name: TARA ALLRED Room: [address] IN ..#: [id number] Admission: 11/02/18 Attend Phys: George Kearney MD Discharge: Date of : 80 Report #: [id number] chronic kidney disease, stage 5 now; tubal ligation. FAMILY HISTORY: Leukemia and diabetes. SOCIAL HISTORY: She is . She has children. She is a former smoker. She does not use alcohol or use illicit drugs. PHYSICAL EXAMINATION: VITAL SIGNS: Blood pressure is 128/64, respiratory rate is 16, pulse rate was 69. She was afebrile, pulse ox was 97% on 2 liters of oxygen by nasal cannula. GENERAL: She is awake, alert and oriented x 3. She is obese. HEAD, EYES, EARS, NOSE, AND THROAT: Mucous membranes are moist. NECK: There is no JVD. CHEST: Bilateral diminished breath sounds posteriorly. No crackles or wheezing heard. CARDIOVASCULAR: S1, S2 normal. No murmurs. ABDOMEN: Obese, otherwise soft, nontender, nondistended. Bowel sounds are present. EXTREMITIES: There is 2+ lower extremity edema. NEUROLOGICAL FUNCTION: Gross neurological function is intact. PSYCHIATRIC: Mood and affect seem to be normal. LABORATORY DATA: Hemoglobin is 8.2. Her potassium is 5.3, BUN 54, creatinine 6.1 and other labs were reviewed. IMAGING: Renal ultrasound was reviewed and chest x-ray was reviewed. ASSESSMENT: 1. Chronic kidney disease, stage 5, creatinine has been running 5.8-6 lately. Her kidney biopsy in June of this year showed severe arteriosclerosis with 32/46 glomeruli, which was globally sclerosed, severe , nodular glomerulosclerosis consistent with diabetes and so combination of diabetic and hypertensive nephropathy. The patient has been wanting to start peritoneal dialysis as an outpatient. Creatinine currently at baseline 6.1. 2. Hypertension. Blood pressure was high when she came in, but now better controlled. 3. Anemia, rule out iron deficiency. 4. Hyperglycemia, history of diabetes type 1, Internal Medicine is managing. 5. Hyperkalemia in the setting of hyperglycemia, potassium 6.1 when she came in. 6. Nausea and vomiting, has been resolved. 7. Elevated troponin, Cardiology is managing. Nuclear stress test today. 8. The patient has a history of severe nephrotic range proteinuria of 14.6 grams when last checked. PLAN: [address] [address] CONSULTATION Name: TARA ALLRED Room: [address] IN [facility]#: [id number] Admission: 11/02/18 Attend Phys: George Kearney MD Discharge: Date of : 80 Report #: [id number] 1. No urgent indication for starting dialysis. The patient is interested in peritoneal dialysis. We will consult Dr. Block's group here as an inpatient to see if she can get PD catheter as an inpatient. I think the patient will benefit from starting dialysis sooner rather than later. Having said that, there is no acute need. 2. Stop IV fluids. Okay to stop insulin drip and start her insulin pump. 3. We will check iron parameters. Thank you for this consultation. We will continue to follow along with you. Discussed with Dr. Kearney and the patient and family and I did spend more than 35 minutes in the patient's critical care. Discussed with the patient's nurse as well. By: 1022 1925Aall Ugalde MD /nt
[~2018-11-02 11:11] MED LIST changes: +CEFDINIR300 MG PO; +IPRAT-ALBUT 0.5-3 ML INH
[2018-11-02 11:59] LABS: ABSOLUTE BASOPHILS 0.1 thou/uL (0.0-0.2); ABSOLUTE EOSINOPHILS 0.2 thou/uL (0.0-0.7); ABSOLUTE MONOCYTES 0.5 thou/uL (0.0-1.2); ABSOLUTE NEUTROPHILS 5.7 thou/uL (1.6-8.1); BASOPHILS 0.7 %; HEMATOCRIT 28.4 % (37.0-47.0); HEMOGLOBIN 9.4 gm/dL (12.0-15.0); LYMPHOCYTES 13.1 %; MCHC 33.2 g/dL (28.0-37.0); MCV 90.3 fL (80.0-100.0); MONOCYTES 6.6 %; MPV 8.2 fl. (7.2-11.1); NUCLEATED RBCS 0 /100WBC; PLATELET COUNT* 252 thou/uL (150-400); POLYS 76.6 %; RBC 3.15 mil/uL (4.20-5.00); RDW-CV 15.6 % (10.5-14.5); WBC 7.5 thou/uL (4.0-11.0)
[2018-11-02 12:01] LABS: PCO2 30.1 mmHg (35.0-45.0); PO2 88.7 mmHg (75.0-100.0); pH 7.376 (7.340-7.450)
[2018-11-02 12:12] LABS: CALCIUM 8.5 mg/dL (8.5-10.1); CREATININE 6.2 mg/dL (0.6-1.3); INR 0.9; PROTIME 9.4 Seconds (9.20-11.50)
[2018-11-02 12:16] LABS: POTASSIUM 6.1 mmol/L (3.5-5.1)
[2018-11-02 12:30] LABS: MAGNESIUM 2.1 mg/dL (1.8-2.4); TOTAL BILIRUBIN 0.3 mg/dL (<0.1-1.0); TOTAL PROTEIN 6.3 g/dL (6.4-8.2); TROPONIN-I LEVEL 0.16 ng/mL (<0.06)
[2018-11-02 12:38] LABS: URINE BILIRUBIN NEGATIVE (Negative); URINE BLOOD 1+ (Negative); URINE CLARITY CLEAR; URINE COLOR YELLOW; URINE GLUCOSE-RANDOM 3+ (Negative); URINE KETONES TRACE (Negative); URINE LEUKOCYTES-REFLEX NEGATIVE (Negative); URINE NITRITE-REFLEX NEGATIVE (Negative); URINE PROTEIN 3+ (Negative); URINE UROBILINOGEN 0.2 E.U./dl (0.2-1.0)
[2018-11-02 12:54] LABS: SQUAMOUS 4-10 Moderate /LPF (0-3)
[2018-11-02 12:55] LABS: URINE WBC-REFLEX 0-5 Rare /HPF (0-5)
[2018-11-02 12:56] LABS: URINE RBC 3-10 Few /HPF (0-2)
[2018-11-02 12:59] LABS: CASTS None Seen /LPF (None Seen); MUCUS None Seen strn/LPF (None Seen)
[2018-11-02 13:00] LABS: CRYSTALS None Seen /LPF (None Seen)
--- NOTE | 2018-11-02 14:43 | EKG ---
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: : 1980 Requested By: George Kearney Order Number: [id number] Reading MD: Jeet Nicole Measurements Intervals [place] Rate: 68 P: 59 MD: 185 QRS: 74 QRSD: 95 T: 73 QT: 462 QTc: 492 Interpretive Statements Sinus rhythm Probable left atrial enlargement Borderline prolonged QT interval Compared to ECG 09/28/2018 22:02:16 No significant changes Electronically Signed On 11-02-2018 14:43:06 CDT by Jeet Nicole [email or web address] <ELECTRONICALLY SIGNED> By: Jeet Nicole MD, [facility] 11/02/18 1443 1305 1305 Jeet Nicole MD, [facility] /EPI
--- NOTE | 2018-11-02 17:51 | NUR ---
PATIENT ADMITTED FROM ED INSULIN GTT STARTED SEE FLOW KARMENIsrael. K NOW 5.6 DOWN FROM PREVIOUS. RENAL ULTRASOUND DONE NO RESIDUAL POST VOID. PT IS HAVING MENSTRAL DISCHARGE. HEPARIN GTT DCD PER CARDIOLOGY. RENAL WILL SEE IN AM.
[2018-11-03] VITALS (12 sets, daily range): BP systolic 126–158; BP diastolic 52–85
[2018-11-03 04:47] LABS: ABSOLUTE EOSINOPHILS 0.2 thou/uL (0.0-0.7); ABSOLUTE LYMPHOCYTES 1.3 thou/uL (0.8-5.3); ABSOLUTE MONOCYTES 0.6 thou/uL (0.0-1.2); ABSOLUTE NEUTROPHILS 4.8 thou/uL (1.6-8.1); BASOPHILS 0.6 %; EOSINOPHILS 3.5 %; HEMATOCRIT 24.3 % (37.0-47.0); HEMOGLOBIN 8.2 gm/dL (12.0-15.0); MCH 30.3 pg (26.0-34.0); MCHC 33.9 g/dL (28.0-37.0); MCV 89.3 fL (80.0-100.0); MONOCYTES 8.5 %; MPV 8.2 fl. (7.2-11.1); NUCLEATED RBCS 0 /100WBC; PLATELET COUNT* 247 thou/uL (150-400); POLYS 69.4 %; RBC 2.72 mil/uL (4.20-5.00); RDW-CV 15.5 % (10.5-14.5)
--- NOTE | 2018-11-03 04:53 | NUR ---
pt progressing towards goals. remains on insulin gtt per orders titrating per protocol. since 2229 last night pt bs has been wnl (90-130). D5 1/2 NS added this a.m per orders. pt complained of headache, subsided with tylenol. pt kept NPO ok for medications per orders. pt has stress test in a.m. no current concerns at this time. will continue to monitor.
[2018-11-03 05:01] LABS: ALBUMIN 1.8 g/dL (3.4-5.0); CALCIUM 8.4 mg/dL (8.5-10.1); CREATININE 6.1 mg/dL (0.6-1.3); POTASSIUM 5.3 mmol/L (3.5-5.1)
--- NOTE | 2018-11-03 12:50 | NUR ---
P.T. ORDERS RECEIVED. CHART REVIEWED. SPOKE WITH PT AT 1110 RE P.T. ORDERS. PT'S COMMENT `THEY SERIOUSLY ORDERED THERAPY FOR ME? WHAT FOR?' DISCUSSED PT CURRENT STATUS WITH PT AND SPOUSE. PT DOES NOT FEEL SHE NEEDS ACUTE P.T. INTERVENTION. PT REPORTS SHE IS GETTING UP AND MOVING TO/FROM COMMODE W/O DIFFICULTY, OTHER THAN LIMITATIONS FROM VARIOUS MONITOR LINES. WILL DISCHARGE FROM P.T. [place] PER PT REQUEST.
--- NOTE | 2018-11-03 15:54 | NUR ---
PT TO TRANSFER TO ROOM 214. REPORT GIVEN TO LAQUITA MCMAHON. PT TRANSPORTED PER WHEELCHAIR. PT TOOK ALL BELONGINGS. PT HAD NUCLEAR STRESS TEST TODAY. PT WITH HOME INSULIN PUMP IN PLACE THAT HAS BEEN OK'D TO USE PER DR LARSON. DENES PAIN. PROGRESSING TOWARDS GOALS.
--- NOTE | 2018-11-03 18:05 | NUR ---
RECEIVED REPORT FROM ICU AND ASSUMED CARE OF PT AT 1630.PT IS A/OX4.TRACING SR ON THE MONITOR.IV PATENT AND SALINE LOCKED.ASSESSMENT COMPLETED.NO COMPLAINTS OF PAIN AND NO SKIN ISSUES.ON 2 L NC.PT HAS HER CONTINIOUS INSULIN PROT.NUCLEAR TEST COMPLETED TODAY.NPO FROM MIDNIGHT FOR LAPROSCOPIC PERITONIAL DIALYSIS PORT PLACEMENT TOMORROW.ON 2 GM SODIUM,CARB CONTROL AND RENAL DIET.UP STAND BY.CALL LIGHT AND FALL PRECAUTIONS IN PLACE.WILL CONTINUE TO MONITOR.
[2018-11-04] VITALS: BP 122/50
--- NOTE | 2018-11-04 03:21 | NUR ---
ASSUMED PT CARE AT APPROX 1930. PT IS AWAKE AND ORIENTED X4. VSS ON 2L/NC. 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 REASSESSMENT DONE AND CHARTED. PT DENIES PAIN/DISCOMFORT. PT HAS HOME INSULIN PUMP IN PLACE. FOR PERITONEAL DIALYSIS CATHETER PLACEMENT, CONSENT SIGNED AT CHART. MAINTAINED ON NOTHING PER [facility] POST MIDNIGHT. CALL LIGHT WITHIN REACH. HOURLY ROUNDING DONE FOR PT SAFETY.
[2018-11-04 04:00] VITALS: BP 141/71
[2018-11-04 04:59] LABS: CREATININE 6.7 mg/dL (0.6-1.3); POTASSIUM 5.3 mmol/L (3.5-5.1)
[2018-11-04 05:06] LABS: % SATURATION 13 % (20-39); IRON 28 ug/dL (50-175)
[2018-11-04 08:00] VITALS: BP 123/55
--- NOTE | 2018-11-04 08:39 | NUR ---
PT LEAVING FOR REST OF CARDIAC STRESS TEST NOW.
--- NOTE | 2018-11-04 12:03 | NUR ---
Nutrition: screen for BMI > 40. Wt past 4 months has been 280-307 lb. RFT's, K+ and phos high, albumin low. Pt with ESRD, plan for PD catheter placement. Pt has been NPO, no intake records. 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 Pt potentionally at mild nutrition risk. Rec RD follow up 11/09.
--- NOTE | 2018-11-04 16:14 | CARDNUC ---
[place] [address] CARDIAC NUCLEAR IMAGING REPORT Name: JOCELINEGEETARA SUDARSHAN Room: [address] IN [facility]#: [id number] Admission: 11/02/18 Attend Phys: George Kearney MD Discharge: Date of : 80 Date of Service: 11/04/18 1614 Report #: [id number] THIS REPORT FOR: //name// APPROVED REPORT Imaging Protocol: Stress Tc-99m/Rest Tc-99m 2 days Study performed: 11/02/2018 16:10:00 Indication: elevated troponin Patient Location: In-Patient Room #: icu 6 Stress Tech: Harriett Lentz Stress Nurse: Cari Monge RN NM Tech:MARIN Hernandez Ht: 5 ft 9 in Wt: 297 lbs BSA: 2.44 m2 BMI: 43.85 Medical History Medical History: crf,diabetes, hypertension Medications: procardia, amlodipine, metoprolol, hydralazine Allergies: lisinopril, promethazine Cardiac Risk Factors: hypertensio, diabetes Previous Cardiac Procedures: none Exercise History: Indeterminate Meds Held (24 hrs): metoprolol, procardia Resting Data Rest SPECT myocardial perfusion imaging was performed in supine position 30 minutes following the intravenous injection of 38.2 mCi of Tc-99m Sestamibi. Time of rest injection: 0745 Date: 11/04/2018 The images were gated to evaluate regional wall motion and calculate left ventricular ejection fraction. Administration Route: IV Administration Site: Right Pharmacologic Stress Pharmacologic stress test was performed by injecting Regadenoson 0.4 mg IV push over 10-15 seconds immediately followed by the intravenous injection of 40.4 mCi of Tc-99m Sestamibi. Time of stress injection: 13:35 Date: 11/03/2018 Administration Route: IV Administration Site: [place] [address] CARDIAC NUCLEAR IMAGING REPORT Name: TARA ALLRED Room: [address] IN [facility]#: [id number] Admission: 11/02/18 Attend Phys: George Kearney MD Discharge: Date of : 80 Date of Service: 11/04/18 1614 Report #: [id number] Heart Rate at time of stress injection: 84 bpm. Gated Stress SPECT was performed 40 minutes after stress injection. The images were gated to evaluate regional wall motion and calculate left ventricular ejection fraction. Stress Test Details Stress Test: Pharmacologic stress testing performed using 0.4 mg of regadenoson per 5 mL given IV over 10 seconds. Reason for pharmacologic stress test: physical limitation. HR Max Heart Rate (APMHR): 182 bpm Resting HR: 77 bpm Target HR (85% APMHR): 154 bpm Max HR Achieved: 84 bpm % of APMHR: 46 Recovery HR: 81 bpm HR response to stress: Normal HR response to stress BP Resting BP: 152/72 mmHg Max BP: 112/52 mmHg Recovery BP: 142/60 mmHg BP response to stress: Normal blood pressure response to stress. ECG Resting ECG: Sinus Rhythm Stress ECG: Sinus Rhythm ST Change: None Arrhythmia: none Recovery ECG: nsr Recovery ST Change: NONE Recovery Arrhythmia: none Clinical Reason for Termination: Completed protocol Exercise duration: 0 min sec Exercise capacity: 1 METs Nurse Comments pt too weak and on O2. Cannot walk on treadmill Stress ECG Conclusion negative stress ecg Study Quality Study: [place] [address] CARDIAC NUCLEAR IMAGING REPORT Name: TARA ALLRED Room: [address]#: [id number] Admission: 11/02/18 Attend Phys: George Kearney MD Discharge: Date of : 80 Date of Service: 11/04/18 1614 Report #: [id number] Artifact: Mild Breast artifact Lung Uptake: Normal Perfusion There is a moderate sized, mild intensity fixed anterior and anterolateral defect seen in SPECT rest and post-stress imaging datasets. Normal perfusion is seen in all other segments. Prone images show a relatively normal perfusion in all segments.There is a corresponding prominent breast shadow on rotating images. Images were reviewed using [employer]. Wall Motion normal alls segments Nuclear Conclusion ECG Findings: negative for ischemia Clinical Findings: negative for ischemia Nuclear Findings: negative for ischemia Exercise Capacity: not assessed Left Ventricular Function: normal Risk Study: low Negative perfusion nuclear stress test for ischemia or infarct.The aforementioned anterior defect is likely artifact <Conclusion> negative stress ecg <ELECTRONICALLY SIGNED> By: Adam Fagan MD, FACC 11/04/18 1614 1614 1614 Adam Fagan MD, FACC /INF
[2018-11-04 16:30] VITALS: BP 147/65
--- NOTE | 2018-11-04 19:16 | NUR ---
PT ASSESSMENT CHARTED. VSS THROUGHOUT SHIFT. NPO MOST OF THE DAY FOR DIALYSIS CATH INSERTION. PT BACK FROM SURGERY AROUND 1630. PT VERY ANXIOUS UPON ARRIVAL BACK TO ROOM 214. PT RESTED POST OP. VSS. PAIN IN THROAT AREA BUT REFUSED ANY NEED FOR INTERVENTION. PATIENT MORE AT EASE NOW.
[2018-11-04 20:00] VITALS: BP 150/73
[2018-11-05] VITALS: BP 146/80
--- NOTE | 2018-11-05 05:37 | NUR ---
ASSUMED CARE OF PT AFTER REPORT AT 1930. PT A&OX4. VSS. PHYSICAL ASSESSMENT COMPLETED AND CHARTED. PT ON O2 AT 2LNC. PT ON MEDSURG STATUS. PT UPSTANDBY TO RESTROOM. PT COMPLAINED OF SORETHROAT- DR PRIETO INFORMED WITH NEW ORDER. ALSO, PT COMPLAINED OF LLQ ABDOMINAL PAIN- PAIN MEDS GIVEN PER MAR. PT RESTED WELL ON BED. CALL LIGHT WITHIN REACH.
[2018-11-05 07:14] LABS: ABSOLUTE EOSINOPHILS 0.3 thou/uL (0.0-0.7); ABSOLUTE LYMPHOCYTES 1.1 thou/uL (0.8-5.3); ABSOLUTE MONOCYTES 0.5 thou/uL (0.0-1.2); BASOPHILS 0.7 %; EOSINOPHILS 4.2 %; HEMATOCRIT 22.6 % (37.0-47.0); HEMOGLOBIN 7.4 gm/dL (12.0-15.0); LYMPHOCYTES 16.1 %; MCH 30.1 pg (26.0-34.0); MCHC 32.8 g/dL (28.0-37.0); MCV 91.8 fL (80.0-100.0); MONOCYTES 6.8 %; MPV 8.2 fl. (7.2-11.1); NUCLEATED RBCS 0 /100WBC; PLATELET COUNT* 226 thou/uL (150-400); POLYS 72.2 %; RBC 2.47 mil/uL (4.20-5.00); RDW-CV 16.2 % (10.5-14.5); WBC 6.9 thou/uL (4.0-11.0)
[2018-11-05 07:25] LABS: CREATININE 6.8 mg/dL (0.6-1.3); POTASSIUM 5.2 mmol/L (3.5-5.1)
[2018-11-05 08:05] VITALS: BP 152/73
--- NOTE | 2018-11-05 10:53 | NUR ---
PT ALERT AND ORIENTED. MED SURG STATUS AND ALL VSS ON 2L. DENIES CP, SOA. C/O POST-OP LLQ PAIN- MEDICATED PER EMAR. INCISIONS AND PD DRAIN ASSESSED WITH MD AT BEDSIDE- WNL. PT MANAGING BG CHECKS AND INSULIN ADMIN VIA PUMP (MD AWARE) . EDUCATED ON SAFETY AND PLAN OF CARE. PLEASE SEE ASSESSMENT FOR ADDITIONAL INFORMATION. WILL CONT TO MONITOR
--- NOTE | 2018-11-05 11:33 | OP ---
[address] [address] OPERATIVE REPORT Name: TARA ALLRED Room: [address] IN .R.#: [id number] Admission: 11/02/18 Attend Phys: George Kearney MD Discharge: Date of : 80 Report #: [id number] THIS REPORT FOR: //name// CC: Michelle Bravo DATE OF SERVICE: 11/04/2018 PREOPERATIVE DIAGNOSES: Diabetes mellitus and renal failure. POSTOPERATIVE DIAGNOSES: Diabetes mellitus and renal failure. PROCEDURE: Laparoscopic placement of a peritoneal dialysis catheter and lysis of adhesions. SURGEON: Alberto Wallace DO. SUPERVISOR VEGETABLE FARMING: Dr. Jimmie Villalpando. SECOND CAD ADMINISTRATOR: Dr. Selena Joseph. ANESTHESIA: General endotracheal. ESTIMATED BLOOD LOSS: Less than 20 mL. COMPLICATIONS: None. DESCRIPTION OF PROCEDURE: After obtaining proper consents and discussing risks and complications with the patient, she was taken to the operating room and laid on the supine position, administered general anesthesia. She was then prepped and draped in the usual fashion. A timeout was performed. We confirmed the appropriate patient and procedure. Preoperative antibiotics had been given. SCDs were in place. We then made a small supraumbilical skin incision with a #11 scalpel blade. This was carried down through the skin into the subcutaneous tissue using electrocautery for hemostasis. Once the fascia was encountered, it was incised along the midline, grasped and elevated with Oriana clamps and divided further. The peritoneum was then bluntly opened using a hemostat. A 2-0 Vicryl sutures were then placed in a [id number] fashion to secure the Tayo trocar, which was then inserted and insufflation was begun. Once insufflation was complete, full visual inspection of the anterior abdominal organs was performed. This revealed some midline adhesions, and it appeared that there may be a tiny incarcerated hernia. I was able to reduce the contents easily back into the peritoneal cavity, and then, we elected to place two more 5 mm trocars in the left lower abdomen after we had determined the location of where we would place the catheters, subcutaneous cuffs. Once [place] [address] OPERATIVE REPORT Name: JOCELINEGEETARA SUDARSHAN Room: [address] IN ..#: [id number] Admission: 11/02/18 Attend Phys: George Kearney MD Discharge: Date of : 80 Report #: [id number] placed, I then took down the adhesions along the midline using electrocautery. The small hernia was quite tiny, less than 0.5 cm defect, so we elected at this point not to do anything with that. We did place the peritoneal dialysis catheter through an 8 mm trocar, which was upsized from a 5 mm trocar. This was placed in the left lower abdomen through the rectus muscle, and the catheter was placed down deep into the pelvis. We then removed the 8 mm trocar. I then removed the other 5 mm trocar. We tunneled subcutaneously using the sharp tunneler from one incision to the next. So both cuffs would be in the subcutaneous tissue. Once this was done, we then instilled a liter of fluid through the peritoneal dialysis catheter and then placed the bag on the ground and nearly all of the fluid came back through that catheter. We then put the catheter capped on in the appropriate fashion. I then stopped the insufflation. All the air was released. The umbilical trocar was removed, and the umbilical fascia was closed using the 2 previously placed 0 Vicryl sutures, plus 2 additional 0 Vicryl suture. Skin incisions were all closed using 4-0 Monocryl subcuticular stitch except where the incision where the catheter exited. At that point, a sterile dressing was placed. The patient tolerated the procedure well and was awakened in the operating room and transported to recovery room in stable condition. <ELECTRONICALLY SIGNED> By: Alberto Wallace DO 11/05/18 1133 1528 1622Anell Wallace DO /cristina
[2018-11-05 16:06] VITALS: BP 148/78
[2018-11-05 20:00] VITALS: BP 150/62
[2018-11-06] VITALS: BP 140/73
--- NOTE | 2018-11-06 05:03 | NUR ---
ASSUMED CARE OF PT AT 1900 PT ALERT AND ORIENTED X4 VS AND ASSESSMENT STABLE. PT HAS OWN INSULIN PUMP ON AND MONITORS HER BG AND ADMINISTERS HER OWN INSULIN. PTS 2100 BG 122 NO INSULIN GIVEN PER PT. PT HAD PAIN MEDS TWICE OVER NIGHT THE SLEPT IN BETWEEN. WILL CONTINUE PLAN OF CARE.
[2018-11-06 05:11] LABS: ABSOLUTE EOSINOPHILS 0.3 thou/uL (0.0-0.7); ABSOLUTE LYMPHOCYTES 1.5 thou/uL (0.8-5.3); ABSOLUTE MONOCYTES 0.6 thou/uL (0.0-1.2); ABSOLUTE NEUTROPHILS 4.4 thou/uL (1.6-8.1); BASOPHILS 0.6 %; EOSINOPHILS 4.5 %; HEMATOCRIT 23.4 % (37.0-47.0); HEMOGLOBIN 7.8 gm/dL (12.0-15.0); LYMPHOCYTES 22.3 %; MCH 30.3 pg (26.0-34.0); MCHC 33.2 g/dL (28.0-37.0); MCV 91.1 fL (80.0-100.0); MONOCYTES 9.2 %; MPV 8.9 fl. (7.2-11.1); NUCLEATED RBCS 0 /100WBC; PLATELET COUNT* 219 thou/uL (150-400); POLYS 63.4 %; RBC 2.57 mil/uL (4.20-5.00); RDW-CV 15.7 % (10.5-14.5); WBC 6.9 thou/uL (4.0-11.0)
[2018-11-06 05:54] LABS: ALBUMIN 1.7 g/dL (3.4-5.0); CALCIUM 8.1 mg/dL (8.5-10.1); PHOSPHORUS* 6.1 mg/dL (2.5-4.9); POTASSIUM 5.2 mmol/L (3.5-5.1)
[2018-11-06 07:35] VITALS: BP 122/60
[2018-11-06 12:10] VITALS: BP 148/77
--- NOTE | 2018-11-06 14:33 | NUR ---
PT ALERT AND ORIENTED. MED SURG STATUS AND ALL VSS ON ROOM AIR/2L. DENIES CP- HAS SOME DYSPNEA WITH EXERTION. C/O ABD/PD SITE PAIN-MEDICATED PER EMAR. PT AWARE OF POSSIBLE PLANS FOR HD CATH PLACEMENT TOMORROW, BUT WOULD LIKE TO SPEAK WITH ANOTHER BUSINESS PROCESS MANAGER PRIOR TO FINAL CONSENT FOR PROCEDURE. EDUCATED ON SAFETY AND PLAN OF CARE. PLEASE SEE ASSESSMENT FOR ADDITIONAL INFORMATION. WILL CONT TO MONITOR
[2018-11-06 20:00] VITALS: BP 153/79
[2018-11-07 00:24] VITALS: BP 134/69
--- NOTE | 2018-11-07 05:26 | NUR ---
ASSUMED CARE OF PT AFTER REPORT AT 1930. PT A&OX4. VSS. PHYSICAL ASSESSMENT COMPLETED AND CHARTED. PT ON O2 AT 2L NC. PT ON MEDSURG STATUS. PT UPADLIB TO RESTROOM. PT COMPLAINED OF LEFT LOWER QUADRANT ABDOMINAL PAIN- PAIN MEDS GIVEN PER AUG. INSTRUCTED ON NPO POST MIDNIGHT FOR POSSIBLE TUNNELED PLACEMENT. COMMUNICATES UNDERSTANDING. CALL LIGHT WITHIN REACH.
[2018-11-07 05:28] LABS: HEMATOCRIT 25.2 % (37.0-47.0); HEMOGLOBIN 8.3 gm/dL (12.0-15.0); MCH 30.3 pg (26.0-34.0); MCHC 32.9 g/dL (28.0-37.0); MCV 92.2 fL (80.0-100.0); MPV 8.9 fl. (7.2-11.1); RBC 2.73 mil/uL (4.20-5.00); RDW-CV 15.4 % (10.5-14.5); WBC 7.1 thou/uL (4.0-11.0)
[2018-11-07 06:15] LABS: CALCIUM 8.4 mg/dL (8.5-10.1); CREATININE 7.1 mg/dL (0.6-1.3); POTASSIUM 5.7 mmol/L (3.5-5.1)
[2018-11-07 08:05] VITALS: BP 134/69
[2018-11-07 08:15] VITALS: BP 138/66
--- NOTE | 2018-11-07 09:00 | NUR ---
ASSUMED PT. CARE AND RECEIVED REPORT AT 0730. PT A/OX4, VSS, PT. MED/SURG STATUS. ON RA @ 98%. PT. C/O SOME MINOR SOB WITH ACTIVITY. STATES PAIN IN ABD. IS 5/10 CURRENTLY, TREATED WITH PO MED. FULL ASSESSMENT COMPLETED, REFER TO CHARTING. DR. RIVERO INTO SEE, TEMP. HD CATHETER PLACEMENT CANCELED FOR TODAY, MONITOR LABS WITH POSSIBLE DC TOMORROW IF STABLE. PT. AWARE OF PLAN AND AGREES. CALL LIGHT IN REACH, WILL CONTINUE WITH PLAN OF CARE.
--- NOTE | 2018-11-07 09:49 | NUR ---
PT KNOWN TO CASE MGT. PT HAS BEEN ACTIVE AND INDEP INCLUDING WORKING. PT HAS AN INSULIN PUMP AND MANAGES HER BLOOD SUGARS. PT HAD P.D. CATHETER PLACED LAST WEEK, NEPHROLOGY MAKING ARRANGMENTS FOR PT TO GET P.D. TRAINING AFTER DISCHARGE.
[2018-11-07 12:58] VITALS: BP 147/65
[2018-11-07 15:52] VITALS: BP 153/61
--- NOTE | 2018-11-07 18:39 | NUR ---
PT. STABLE THROUGH OUT SHIFT. TREATED FOR PAIN X 2 WITH PO MED, TOLERATED WELL. NAPPED ON AND OFF THROUGH OUT THE DAY. POSSIBLE DC TOMORROW, PT. STATES UNDERSTANDING AND IS READY TO DC IF ABLE. PT REPORTS HAVING DISCUSSED TRAINING FOR P.D. WITH STAFF AT OFFICE IN 2 WEEKS. HOURLY ROUNDING COMPLETED THROUGH OUT THE DAY FOR PT. SAFETY.
[2018-11-07 20:00] VITALS: BP 130/54
[2018-11-08 04:00] VITALS: BP 142/62
--- NOTE | 2018-11-08 05:25 | NUR ---
ASSUMED CARE OF PT AFTER REPORT AT 1930. PT A&OX4. VSS. PHYSICAL ASSESSMENT COMPLETED AND CHARTED. PT ON O2 2L NC WHEN SLEEPING. PT ON MEDSURG STATUS. PT UPADLIB TO RESTROOM. PT COMPLAINED OF LEFT LOWER QUADRANT ABDOMINAL PAIN- PAIN MEDS GIVEN PER AUG. CALL LIGHT WITHIN REACH.
[2018-11-08 05:30] LABS: HEMATOCRIT 24.4 % (37.0-47.0); MCH 29.7 pg (26.0-34.0); MCHC 32.9 g/dL (28.0-37.0); MCV 90.1 fL (80.0-100.0); MPV 8.4 fl. (7.2-11.1); RBC 2.71 mil/uL (4.20-5.00); RDW-CV 15.6 % (10.5-14.5); WBC 6.1 thou/uL (4.0-11.0)
[2018-11-08 05:39] LABS: CALCIUM 8.4 mg/dL (8.5-10.1); CREATININE 6.8 mg/dL (0.6-1.3); POTASSIUM 4.8 mmol/L (3.5-5.1)
[2018-11-08 08:00] VITALS: BP 145/63
[2018-11-08 09:40] VITALS: BP 145/63
--- NOTE | 2018-11-08 10:19 | NUR ---
ASSUMED CARE OF PT AT 0730. PT RESTING IN BED. PT A&0X4, COMPLAINS OF PAIN TO LLQ, TREATED WITH PRN HYDROCODONE WITH PARTIAL RELIEF. PT MED SURG STATUS. PT ON RA SAT UPPER 90'S. DENIES ANY SHORTNESS OF BREATH. PT UP AD LUIS IN ROOM. LLQ PERITONEAL DIALYSIS CATHETER IN PLACE WITH DRESSING IN PLACE. STRICT I/O IN PLACE. PT GOAL FOR TODAY IS MONITOR POTASSIUM AND CR AND DISCHARGE PLANNING TO HOME IF OKAY WITH NEPHROLOGY. AM ASSESSMENT CHARTED. MEDICATIONS PER AUG. PT REPOSITIONS SELF. HOURLY ROUNDING OBSERVED. BED IN LOW POSITION. CALL LIGHT WITHIN REACH. WILL CONTINUE PLAN OF CARE.
[2018-11-08] MEDS ORDERED: LIPITOR 20 MG T20 M1 PO (11:45)
[2018-11-08] MEDS ORDERED: CALCIUM ACETAT667 MG PO (11:45)
[2018-11-08] MEDS ORDERED: HYDROCODON-ACE1 EAC7 PO (12:20)
[2018-11-08] MEDS ORDERED: NORCO 10-325 T1 EACH PO (12:29)
[2018-11-08 12:53] VITALS: BP 156/52
--- NOTE | 2018-11-08 16:38 | NUR ---
DISCHARGE ORDERS RECEIVED. DISCHARGE INSTRUCTIONS, CARE NOTES, SCRIPTS AND FOLLOW UP APPTS GIVEN TO PT. PT COMMUNICATES UNDERSTANDING OF DISCHARGE TEACHING. IV AND PAPER MAKING MACHINE OPERATOR REMOVED. PT DISCHARGED WITH ALL BELONGINGS AND PAPERWORK VIA WHEELCHAIR WITH NURSING STAFF TO FAMILYS OWN PERSONAL VEHICLE.
== END 2018-11-08 16:40 | disposition home or self-care (01) | DRG 353 ==
LOC: M.ERS 11:11 → M.ICU 13:24 → M.TBA-ER 13:24 → M.ICU 14:15 → M.2W 11-03 16:13
PROVIDERS: Internal Medicine; Internal Medicine Nephrology; Personal Emergency Response Attendant; ADMIT Family Medicine
PROC: 3E1M39Z Irrigation of Peritoneal Cavity using Dialysate, Percutaneous Approach (ICD-10-PCS; principal; 2018-11-04)
PROC: 0WHG43Z Insertion of Infusion Device into Peritoneal Cavity, Percutaneous Endoscopic Approach (ICD-10-PCS; 2018-11-04)
PROC: 0WQF4ZZ Repair Abdominal Wall, Percutaneous Endoscopic Approach (ICD-10-PCS; 2018-11-04)
DX: K42.0 Umbilical hernia with obstruction, without gangrene (principal); I21.4 Non-ST elevation (NSTEMI) myocardial infarction; J96.01 Acute respiratory failure with hypoxia; N18.6 End stage renal disease; Z68.42 Body mass index [BMI] 45.0-49.9, adult; I12.0 Hypertensive chronic kidney disease with stage 5 chronic kidney disease or end stage renal disease; E87.5 Hyperkalemia; E10.40 Type 1 diabetes mellitus with diabetic neuropathy, unspecified; I65.21 Occlusion and stenosis of right carotid artery; E10.22 Type 1 diabetes mellitus with diabetic chronic kidney disease; E78.5 Hyperlipidemia, unspecified; E10.65 Type 1 diabetes mellitus with hyperglycemia; E66.01 Morbid (severe) obesity due to excess calories; K21.9 Gastro-esophageal reflux disease without esophagitis; D50.9 Iron deficiency anemia, unspecified; D63.8 Anemia in other chronic diseases classified elsewhere; Z79.4 Long term (current) use of insulin; Z88.8 Allergy status to other drugs, medicaments and biological substances; Z83.3 Family history of diabetes mellitus; Z80.6 Family history of leukemia; Z79.899 Other long term (current) drug therapy; Z79.82 Long term (current) use of aspirin; Z87.891 Personal history of nicotine dependence; Z82.49 Family history of ischemic heart disease and other diseases of the circulatory system

== ENCOUNTER 2018-12-02 16:09 | Emergency (ER) | payer OTHER, MEDICARE ==
[~2018-12-02] VITALS: Ht 175.3 cm; Wt 122.9 kg
[~2018-12-02 16:09] MED LIST changes: +CALCIUM ACETAT667 MG PO; +HYDROCODON-ACE1 EAC7 PO; +LIPITOR 20 MG T20 M1 PO; +NORCO 10-325 T1 EACH PO
[2018-12-02 16:46] LABS: ABSOLUTE BASOPHILS 0.1 thou/uL (0.0-0.2); ABSOLUTE EOSINOPHILS 0.4 thou/uL (0.0-0.7); ABSOLUTE LYMPHOCYTES 1.8 thou/uL (0.8-5.3); ABSOLUTE MONOCYTES 0.7 thou/uL (0.0-1.2); ABSOLUTE NEUTROPHILS 5.2 thou/uL (1.6-8.1); BASOPHILS 0.8 %; EOSINOPHILS 4.7 %; HEMOGLOBIN 9.7 gm/dL (12.0-15.0); LYMPHOCYTES 22.1 %; MCH 30.3 pg (26.0-34.0); MCHC 33.5 g/dL (28.0-37.0); MCV 90.5 fL (80.0-100.0); MPV 7.5 fl. (7.2-11.1); NUCLEATED RBCS 0 /100WBC; PLATELET COUNT* 271 thou/uL (150-400); POLYS 63.4 %; RDW-CV 15.8 % (10.5-14.5); WBC 8.3 thou/uL (4.0-11.0)
[2018-12-02 16:53] LABS: CALCIUM 8.4 mg/dL (8.5-10.1); CREATININE 5.8 mg/dL (0.6-1.3); POTASSIUM 4.3 mmol/L (3.5-5.1)
[2018-12-02 17:01] LABS: ALBUMIN 2.5 g/dL (3.4-5.0); TOTAL BILIRUBIN 0.3 mg/dL (<0.1-1.0); TOTAL PROTEIN 6.7 g/dL (6.4-8.2)
[2018-12-02] MEDS ORDERED: HYDRALAZINE 10M10 MG PO (18:09)
[2018-12-02 18:47] VITALS: BP 180/88
--- NOTE | 2018-12-05 13:23 | EKG ---
[place] [address] ELECTROCARDIOGRAM REPORT Name: NIYAAMANGEETARA HEATON Room: [facility]#: [id number] Admission: 12/02/18 Attend Phys: Discharge: 12/02/18 Date of : 80 Report #: [id number] THIS REPORT FOR: //name// [facility] ED Test Date: 2018-12-02 Test Time: 16:34:44 Pat Name: TARA ALLRED Department: Room: Gender: F Gasoline Finisher: MS : 1980 Requested By: Ray Reeder Order Number: [id number] MD: Jeet Nicole Measurements Intervals [place] Rate: 81 P: 55 IN: 221 QRS: 60 QRSD: 104 T: 77 QT: 429 QTc: 498 Interpretive Statements Sinus rhythm Prolonged IN interval Probable left atrial enlargement Borderline prolonged QT interval Baseline wander in lead(s) I,II,aVR,V2 Compared to ECG 11/02/2018 13:05:06 First degree AV block now present Electronically Signed On 12-05-2018 13:23:02 CDT by Jeet Nicole [email or web address] <ELECTRONICALLY SIGNED> By: Jeet Nicole MD, [facility] 12/05/18 1323 1634 1634 Jeet Nicole MD, [facility] /EPI
== END 2018-12-02 18:47 | disposition home or self-care (01) ==
LOC: M.ERS 16:09
PROVIDERS: Nurse Practitioner Psychiatric/Mental Health
DX: H53.8 Other visual disturbances (principal); E10.9 Type 1 diabetes mellitus without complications; I12.9 Hypertensive chronic kidney disease with stage 1 through stage 4 chronic kidney disease, or unspecified chronic kidney disease; E10.22 Type 1 diabetes mellitus with diabetic chronic kidney disease; N18.4 Chronic kidney disease, stage 4 (severe); Z99.2 Dependence on renal dialysis; Z88.8 Allergy status to other drugs, medicaments and biological substances

== ENCOUNTER 2019-10-30 15:21 | Inpatient (IN) | payer OTHER, MEDICARE ==
[~2019-10-30] VITALS: Ht 175.3 cm; Wt 145.7 kg
[~2019-10-30 15:21] MED LIST changes: +HYDRALAZINE 10M10 MG PO
[2019-10-30 16:35] VITALS: BP 111/55
[2019-10-30 18:56] LABS: HEMATOCRIT 23.9 % (37.0-47.0); HEMOGLOBIN 8.2 gm/dL (12.0-15.0); MCH 32.1 pg (26.0-34.0); MCHC 34.4 g/dL (28.0-37.0); MCV 93.6 fL (80.0-100.0); MPV 8.1 fl. (7.2-11.1); RBC 2.55 mil/uL (4.20-5.00); RDW-CV 13.4 % (10.5-14.5)
[2019-10-30 19:10] LABS: ALBUMIN 1.8 g/dL (3.4-5.0); CALCIUM 7.9 mg/dL (8.5-10.1); CREATININE 9.4 mg/dL (0.6-1.3); MAGNESIUM 1.8 mg/dL (1.8-2.4); POTASSIUM 3.7 mmol/L (3.5-5.1); TOTAL BILIRUBIN 0.3 mg/dL (<0.1-1.0); TOTAL PROTEIN 5.4 g/dL (6.4-8.2)
[2019-10-30] MEDS ORDERED: LITE COAT ASPI325 MG PO (19:19)
[2019-10-30] MEDS ORDERED: HYDRALAZINE 10M10 MG PO (19:23)
[2019-10-30] MEDS ORDERED: PROCARDIA XL90 MG PO (19:28)
[2019-10-30] MEDS ORDERED: VITAMIN D3250 MC1 PO (19:42)
[2019-10-30] MEDS ORDERED: DIALYVITE TABL1 EACH PO (19:45)
[2019-10-30] MEDS ORDERED: [UNRECOGNIZED DRUG - OTHER] TOP (19:47)
[2019-10-30] MEDS ORDERED: LASIX 40 MG TAB40 MG PO (19:49)
[2019-10-30 20:00] VITALS: BP 116/61
[2019-10-31 00:31] VITALS: BP 132/64
[2019-10-31 04:00] VITALS: BP 140/73
[2019-10-31 07:00] VITALS: BP 142/69
[2019-10-31 09:16] LABS: TOTAL VOLUME 20 ml
[2019-10-31 09:17] LABS: CLARITY SLIGHTLY HAZY
[2019-10-31 09:18] LABS: SOURCE PERTINEAL
[2019-10-31 09:25] LABS: URINE BILIRUBIN NEGATIVE (Negative); URINE BLOOD 1+ (Negative); URINE CLARITY CLEAR; URINE COLOR YELLOW; URINE GLUCOSE-RANDOM 3+ (Negative); URINE KETONES NEGATIVE (Negative); URINE LEUKOCYTES-REFLEX NEGATIVE (Negative); URINE NITRITE-REFLEX NEGATIVE (Negative); URINE PROTEIN 3+ (Negative); URINE UROBILINOGEN 0.2 E.U./dl (0.2-1.0)
[2019-10-31 09:39] LABS: BF RBC <1000 /mm3
[2019-10-31 09:41] LABS: TOTAL CELL COUNT <20 /mm3
[2019-10-31 09:47] LABS: BACTERIA-REFLEX 1-9 Few /HPF (None Seen); CASTS None Seen /LPF (None Seen); CRYSTALS None Seen /LPF (None Seen); MUCUS None Seen strn/LPF (None Seen); SQUAMOUS 4-10 Moderate /LPF (0-3); URINE RBC 3-10 Few /HPF (0-2); URINE WBC-REFLEX 0-5 Rare /HPF (0-5)
[2019-10-31 12:07] VITALS: BP 135/66
[2019-10-31] MEDS ORDERED: ALPRAZOLAM XR3 MG PO (14:30)
[2019-10-31 16:18] VITALS: BP 128/60
[2019-10-31 20:00] VITALS: BP 129/67
[2019-11-01 00:04] VITALS: BP 148/80
[2019-11-01 04:18] VITALS: BP 153/76
[2019-11-01 07:07] LABS: HEMATOCRIT 24.2 % (37.0-47.0); HEMOGLOBIN 8.3 gm/dL (12.0-15.0)
[2019-11-01 07:45] LABS: ALBUMIN 1.9 g/dL (3.4-5.0); CALCIUM 8.4 mg/dL (8.5-10.1); CREATININE 9.5 mg/dL (0.6-1.3); PHOSPHORUS* 6.2 mg/dL (2.5-4.9); POTASSIUM 3.7 mmol/L (3.5-5.1)
[2019-11-01 08:00] VITALS: BP 149/77
[2019-11-01 10:51] VITALS: BP 149/77
[2019-11-01] MEDS ORDERED: LASIX 40 MG TAB40 MG PO (12:57)
--- NOTE | 2019-11-06 13:21 | CON ---
[address] [address] CONSULTATION Name: TARA ALLRED Room: [address] IN M.R.#: [id number] Admission: 10/30/19 Attend Phys: Miriam Arnold Discharge: 11/01/19 Date of : 80 Report #: [id number] THIS REPORT FOR: //name// cc: Michelle Davidson Maggie M. DO ~ THIS REPORT FOR: //name// CC: Michelle Singh NEPHROLOGY CONSULTATION REASON FOR CONSULTATION: End-stage kidney disease. CONSULTING PHYSICIAN: Dr. Singh. HISTORY OF PRESENT ILLNESS: A 39-year-old female who was transferred from [facility] where I initially saw her, she was admitted there with fluid overload and hypertension. She underwent peritoneal dialysis there and was also initiated on Lasix and had a good response to that. She was transferred to this facility for insurance reasons. She also had high blood sugars over 500, which came under control with medical intervention. She currently feels somewhat fatigued, still having some swelling, but does not have any significant shortness of breath and her chest x-ray shows improving congestion. REVIEW OF SYSTEMS: Constitutional, psych, heme, eyes, ENT, respiratory, cardiac, GI, , endocrine, all negative except as documented above. PAST MEDICAL HISTORY: End-stage kidney disease, on peritoneal dialysis; diabetes type 1, hypertension, history of detached retina, secondary hyperparathyroidism, anemia of chronic disease, vitamin D deficiency. SOCIAL HISTORY: No tobacco. FAMILY HISTORY: Not pertinent in a 39-year-old female. CURRENT MEDICATIONS: Reviewed. PHYSICAL EXAMINATION: VITAL SIGNS: Blood pressure 135/66, pulse 71, respirations 16, temperature 36.8. GENERAL: No acute distress. EYES: Open. EARS: Externally normal. NECK: Supple. CARDIOVASCULAR: Regular rate. LUNGS: [place] [address] CONSULTATION Name: NIYATARA DUVALL SUDARSHAN Room: [address]#: [id number] Admission: 10/30/19 Attend Phys: Miriam Arnold Discharge: 11/01/19 Date of : 80 Report #: [id number] ABDOMEN: Soft. PD catheter intact. No abdominal tenderness. MUSCULOSKELETAL: Nontender. PSYCHIATRIC: Awake, alert. LABORATORY DATA: White cell count 10, hemoglobin 8.2, platelets 200. Sodium 134, potassium 3.7, chloride 98, bicarbonate 29, BUN 25, creatinine 9.4, glucose 126, calcium 7.9, albumin 1.8. ASSESSMENT AND PLAN: 1. End-stage kidney disease, on peritoneal dialysis, followed by Dr. Steele as an outpatient. 2. Hypertension with a component of anxiety as well as volume overload. 3. Volume overload. 4. Diabetes type 1 with blood sugar over 500 on initial admission at [facility]. 5. Volume overload and pulmonary edema on chest x-ray at [facility]. 6. Secondary hyperparathyroidism. 7. Anemia of chronic disease, on Mircera. 8. Vitamin D deficiency. 9. Recent PD peritonitis, completed antibiotics on 10/19/2019 and repeat cell count last week as well as inpatient here show no significant signs of infection. PLAN: 1. Continue Lasix 80 mg oral daily. She was prescribed this as an outpatient, but did not receive it. 2. Continue peritoneal dialysis. She had 1.7 liters of fluid removed. Will continue with 2.5 dextrose bags. Emphasized the importance of blood sugar control, dietary sodium restriction as well as fluid restriction. 3. She is anemic. Her BUN is elevated. Will order a stool guaiac. Discharge planning from my standpoint is okay, but we will continue to follow while she remains an inpatient. Case was discussed with Dr. Singh. Thank you for requesting my opinion in the care and management of this patient. <ELECTRONICALLY SIGNED> By: Tacho Steele MD 11/06/19 1321 1349 1414Abridget Steele MD /nt
== END 2019-11-01 13:08 | disposition home or self-care (01) | DRG 189 ==
LOC: M.2W 15:21
PROVIDERS: Internal Medicine Nephrology; ADMIT Internal Medicine
DX: J81.0 Acute pulmonary edema (principal); N18.6 End stage renal disease; I12.0 Hypertensive chronic kidney disease with stage 5 chronic kidney disease or end stage renal disease; N25.81 Secondary hyperparathyroidism of renal origin; Z68.42 Body mass index [BMI] 45.0-49.9, adult; E87.1 Hypo-osmolality and hyponatremia; E87.70 Fluid overload, unspecified; E10.22 Type 1 diabetes mellitus with diabetic chronic kidney disease; I25.10 Atherosclerotic heart disease of native coronary artery without angina pectoris; F41.9 Anxiety disorder, unspecified; D63.8 Anemia in other chronic diseases classified elsewhere; E66.9 Obesity, unspecified; E78.5 Hyperlipidemia, unspecified; D50.9 Iron deficiency anemia, unspecified; I25.2 Old myocardial infarction; Z88.8 Allergy status to other drugs, medicaments and biological substances; Z99.2 Dependence on renal dialysis

== ENCOUNTER 2019-11-05 13:05 | Inpatient (IN) | payer OTHER, MEDICARE ==
[~2019-11-05] VITALS: Ht 175.3 cm; Wt 143.3 kg
[~2019-11-05 13:05] MED LIST changes: +ALPRAZOLAM XR3 MG PO; +DIALYVITE TABL1 EACH PO; +LASIX 40 MG TAB40 MG PO; +LITE COAT ASPI325 MG PO; +PROCARDIA XL90 MG PO; +VITAMIN D3250 MC1 PO; +[UNRECOGNIZED DRUG - OTHER] TOP
[2019-11-05 13:17] VITALS: BP 233/117
[2019-11-05 13:37] LABS: ABSOLUTE EOSINOPHILS 0.2 thou/uL (0.0-0.7); ABSOLUTE LYMPHOCYTES 0.9 thou/uL (0.8-5.3); ABSOLUTE MONOCYTES 0.4 thou/uL (0.0-1.2); ABSOLUTE NEUTROPHILS 6.2 thou/uL (1.6-8.1); BASOPHILS 0.6 %; EOSINOPHILS 2.7 %; HEMATOCRIT 23.8 % (37.0-47.0); HEMOGLOBIN 7.9 gm/dL (12.0-15.0); LYMPHOCYTES 11.7 %; MCH 32.6 pg (26.0-34.0); MCHC 33.4 g/dL (28.0-37.0); MCV 97.4 fL (80.0-100.0); MONOCYTES 5.2 %; MPV 8.6 fl. (7.2-11.1); NUCLEATED RBCS 0 /100WBC; PLATELET COUNT* 215 thou/uL (150-400); POLYS 79.8 %; RBC 2.44 mil/uL (4.20-5.00); WBC 7.7 thou/uL (4.0-11.0)
[2019-11-05 13:46] LABS: APTT 27.1 Seconds (25.0-31.3); PROTIME 9.8 Seconds (9.20-11.50)
[2019-11-05 13:48] LABS: ANION GAP 10 mmol/L (7-16); BUN 63 mg/dL (7-18); CHLORIDE 91 mmol/L (98-107); CO2 25 mmol/L (21-32); CREATININE 9.7 mg/dL (0.6-1.3); POTASSIUM 4.5 mmol/L (3.5-5.1); SODIUM 126 mmol/L (136-145)
[2019-11-05 13:56] LABS: ALBUMIN 2.1 g/dL (3.4-5.0); ALKALINE PHOSPHATASE 182 U/L (46-116); NT-PRO BRAIN NAT PEPTIDE > 35000 pg/mL (<300); SGOT 41 U/L (15-37); SGPT 66 U/L (30-65); TOTAL BILIRUBIN 0.6 mg/dL (<0.1-1.0); TOTAL PROTEIN 6.1 g/dL (6.4-8.2)
[2019-11-05 14:04] LABS: GLUCOSE 796 mg/dL (70-99)
[2019-11-05 16:00] VITALS: BP 213/94
[2019-11-05 16:45] VITALS: BP 227/98
[2019-11-05 17:30] VITALS: BP 183/81
[2019-11-05] MEDS ORDERED: RENVELA0.8 GM PO (17:50)
[2019-11-05] MEDS ORDERED: RENVELA800 MG PO (18:54)
[2019-11-05] MEDS ORDERED: CINACALCET HCL90 MG PO (18:55)
--- NOTE | 2019-11-05 19:59 | NUR ---
PT RECEIVED FROM ER AT 1630, A&O x4. O2 SUPP NC AT 3L/MIN. HYDRALAZINE 1O MG GIVEN FOR HTN. VOMITTED x2, ZOFRAN ADMINISTERED. ADMISSION PROCESS COMPLETED. INSULIN PER EMAR FOR HIGH BLOOD GLUCOSE. NEPHRO CONSULTED, TO PLAN PD TONIGHT.
[2019-11-05 20:00] VITALS: BP 183/84
[2019-11-06] VITALS (7 sets, daily range): BP systolic 107–177; BP diastolic 50–78
--- NOTE | 2019-11-06 04:51 | NUR ---
ASSUMED CARE OF PT AFTER REPORT AT 1930. PT A&OX4. VSS. PHYSICAL ASSESSMENT COMPLETED AND CHARTED. PT ON O2 AT 3L NC. PT TRACING SR ON TELE. PT UPADLIB TO BS. STARTED PERITONEAL DIALYSIS LAST NIGHT. PT REQUESTED FOR LANTUS SINCE HER INSULIN PUMP IS NOT WORKING AND TO RESUME HER XANAX. ALSO, SYSTOLIC BP WAS STILL ON >180'S AT THE START OF THE SHIFT. DR SCHAEFER MADE AWARE WITH ORDERS MADE. UA SENT TO LAB. CALL LIGHT WITHIN REACH.
[2019-11-06 05:28] LABS: AMP/METHAMP Negative (Negative); BARBITURATES Negative (Negative); BENZODIAZEPINES Negative (Negative); COCAINE Negative (Negative); METHADONE Negative (Negative); OPIATES Negative (Negative); PCP Negative (Negative); THC Negative (Negative)
[2019-11-06 07:25] LABS: HEMATOCRIT 21.8 % (37.0-47.0); HEMOGLOBIN 7.7 gm/dL (12.0-15.0); MCH 32.7 pg (26.0-34.0); MCHC 35.3 g/dL (28.0-37.0); MCV 92.7 fL (80.0-100.0); RBC 2.35 mil/uL (4.20-5.00); RDW-CV 13.3 % (10.5-14.5); WBC 9.1 thou/uL (4.0-11.0)
[2019-11-06 07:44] LABS: ALKALINE PHOSPHATASE 157 U/L (46-116); ANION GAP 9 mmol/L (7-16); BUN 59 mg/dL (7-18); CALCIUM 8.7 mg/dL (8.5-10.1); CHLORIDE 97 mmol/L (98-107); CHOLESTEROL 179 mg/dL (<200); CO2 28 mmol/L (21-32); CREATININE 9.7 mg/dL (0.6-1.3); GLUCOSE 83 mg/dL (70-99); HDL CHOLESTEROL 39 mg/dL (>40); LDL CHOLESTEROL 115 mg/dL (<100); PHOSPHORUS* 5.4 mg/dL (2.5-4.9); POTASSIUM 3.6 mmol/L (3.5-5.1); SGOT 18 U/L (15-37); SGPT 53 U/L (30-65); TC:HDL 4.6 Ratio (Not establshd); TOTAL BILIRUBIN 0.6 mg/dL (<0.1-1.0); TOTAL PROTEIN 5.4 g/dL (6.4-8.2); TRIGLYCERIDE 128 mg/dL (<150); VLDL 26 mg/dL (<40)
[2019-11-06 07:49] LABS: SODIUM 134 mmol/L (136-145)
[2019-11-06 07:51] LABS: SERUM ASSESSMENT Clear
--- NOTE | 2019-11-06 16:35 | EKG ---
[place] [address] ELECTROCARDIOGRAM REPORT Name: TARA ALLRED Room: [address] ADM IN ..#: [id number] Admission: 11/05/19 Attend Phys: Rachele bach Sa Discharge: Date of : 80 Date of Service: 11/05/19 1351 Report #: [id number] THIS REPORT FOR: //name// [facility] ED Test Date: 2019-11-05 Test Time: 13:51:06 Pat Name: TARA ALLRED Department: Room: [facility] Gender: F Guest Service Manager: IRIS : 1980 Requested By: Villa Maloney Order Number: [id number] MD: Antony Yang Measurements Intervals [place] Rate: 83 P: 54 ND: 182 QRS: 49 QRSD: 99 T: 114 QT: 423 QTc: 497 Interpretive Statements Sinus rhythm Probable left atrial enlargement Borderline repolarization abnormality Borderline ST elevation, anterior leads, consider early repolarization Borderline prolonged QT interval Compared to ECG 12/02/2018 16:34:44 ST (T wave) deviation now present First degree AV block no longer present Electronically Signed On 11-06-2019 16:33:32 CDT by Antony Yang [email or web address] <ELECTRONICALLY SIGNED> By: Antony Yang MD, [facility] 11/06/19 1633 1351 1351 Antony Yang MD, [facility] /EPI
[2019-11-07] VITALS: BP 114/65
[2019-11-07 04:00] VITALS: BP 105/63
--- NOTE | 2019-11-07 05:37 | NUR ---
PATIENT SLEPT MOST OF THE NIGHT. PATIENT HAD NO COMPLAINTS OF PAIN OR NAUSEA. PATIENT WAS HOOKED UP TO PERITONEAL DYALSIS OVERNIGHT WITH NO ISSUES. BP HAS REAMINED LOWER FOR THE PATIENT. BP MEDS WERE HELD. WILL CONTINUE TO MONITOR.
--- NOTE | 2019-11-07 07:16 | NUR ---
11/06/19 1800 END OF SHIFT NOTE PT. AOX4, VSS, NSR ON MONITOR, PAIN UNDER CONTROL. PT. ASKED TO HAVE NURSING PRESENT WHEN CHECKING BLOOD GLUCOSE USING OWN METER AND PLACE INSULIN PUMP BACK ON SELF. MD TO REVIEW AND ADJUST DOSING NEEDED. HOURLY ROUNDING PERFORMED. CALL LIGHT AND PERSONAL BELONGINGS PLACED WITHIN REACH.
[2019-11-07 07:49] LABS: HEMATOCRIT 22.7 % (37.0-47.0); HEMOGLOBIN 7.9 gm/dL (12.0-15.0)
[2019-11-07 08:00] VITALS: BP 123/78
[2019-11-07 08:01] LABS: ALBUMIN 2.1 g/dL (3.4-5.0); CALCIUM 7.7 mg/dL (8.5-10.1); CREATININE 10.1 mg/dL (0.6-1.3); CREATININE 10.4 mg/dL (0.6-1.3); MAGNESIUM 2.1 mg/dL (1.8-2.4); PHOSPHORUS* 5.4 mg/dL (2.5-4.9); PHOSPHORUS* 5.6 mg/dL (2.5-4.9); POTASSIUM 4.2 mmol/L (3.5-5.1)
[2019-11-07 08:09] LABS: % SATURATION 29 % (20-39); IRON 61 ug/dL (50-175)
--- NOTE | 2019-11-07 08:45 | NUR ---
Nutrition: Consult was received for diet instruction. H/o DM 20+ yrs. Pt sees renal RD at renal clinic once a month. Pt denied need for diet education today. She stated she has no nutrition concerns at this time. RD is available. Hx, labs, meds noted. Mild risk.
[2019-11-07 12:00] VITALS: BP 125/58
[2019-11-07 12:42] LABS: CALCIUM 7.7 mg/dL (8.5-10.1); CREATININE 10.4 mg/dL (0.6-1.3); POTASSIUM 3.7 mmol/L (3.5-5.1)
--- NOTE | 2019-11-07 13:21 | CON ---
[address] [address] CONSULTATION Name: TARA ALLRED Room: [address] IN M.R.#: [id number] Admission: 11/05/19 Attend Phys: Rachele Barragan Discharge: Date of : 80 Report #: [id number] THIS REPORT FOR: //name// cc: MARVIN Tom family physician/PCP MARVIN Tom family physician/PCP ~ THIS REPORT FOR: //name// CC: MARVIN physician/PCP Rachele Rea DATE OF SERVICE: 11/06/2019 NEPHROLOGY CONSULTATION REASON FOR CONSULTATION: End-stage kidney disease. CONSULTING PHYSICIAN: Rachele Rea MD REASON FOR CONSULTATION: End-stage kidney disease. HISTORY OF PRESENT ILLNESS: A 39-year-old female, who was recently hospitalized here, just discharged a few days ago. She was initially hospitalized at [facility], transferred to [facility] for insurance reasons and was initially admitted there with fluid overload, pulmonary edema and hypertension in the setting of blood sugars over 500s. She underwent peritoneal dialysis there and then subsequently at [facility] when she was transferred with better blood sugar control, she had good ultrafiltration and was eventually discharged to home. She comes back in with fluid overload. Blood pressures in the 230s and blood sugars at home, which were registering up to 700s. She found a kink in her insulin pump and her sugars now are much better controlled. At home, she was having good ultrafiltration, anywhere from [id number] per her verbal report and she had 1700 off overnight while hospitalized here. She currently has no complaints. She is breathing better. She still has some swelling, but her breathing is much improved. She has no complaints. REVIEW OF SYSTEMS: Constitutional, psych, heme, eyes, ENT, respiratory, cardiac, GI, , endocrine, all negative except as documented above. PAST MEDICAL HISTORY: End-stage kidney disease; on peritoneal dialysis, diabetes type 1, hypertension, history of detached retina, secondary hyperparathyroidism, anemia of chronic disease, vitamin D deficiency. SOCIAL HISTORY: No tobacco. FAMILY HISTORY: Not pertinent in this 39-year-[place] [address] CONSULTATION Name: TARA ALLRED Room: [address] IN [facility]#: [id number] Admission: 11/05/19 Attend Phys: Rachele Barragan Discharge: Date of : 80 Report #: [id number] CURRENT MEDICATIONS: Reviewed. PHYSICAL EXAMINATION: VITAL SIGNS: Blood pressure is 141/65, pulse 73, respirations 18 and temperature 36.6. LABORATORY DATA: White cell count 9.1, hemoglobin 7.7, platelets 241. Sodium 134, potassium 3.6, chloride 97, bicarbonate 28, BUN 59, creatinine 9.7, calcium 8.7, phosphorus 5.4, magnesium 2. Albumin is 2. Glucose was 83. TSH was okay. ASSESSMENT AND PLAN: 1. End-stage kidney disease, on peritoneal dialysis, followed by Dr. Steele as an outpatient. 2. Hypertension with a component of anxiety as well as volume overload. 3. Volume overload. 4. Diabetes type 1 with blood sugars up to almost 800 in the setting of a kink in her insulin pump. 5. Secondary hyperparathyroidism. 6. Anemia of chronic disease, on Versed. 7. Vitamin D deficiency. 8. Recent peritoneal PD peritonitis with Neisseria species, completed antibiotics on 10/19/2019 and repeat cell counts showed no significant signs of infection. PLAN: 1. Blood sugars are better controlled, suspected volume overload and hypertension in the setting of hyperglycemia, which limits ultrafiltration with dialysis at least volume overload state. This is hopefully now resolved since the kink and her insulin pump has now resolved. She had good ultrafiltration with a 2.5% dextrose bags overnight blood sugars are controlled. We will do the same PD regimen today regarding the anemia of chronic disease. She is on a Husam Cari I will check iron studies. 2. Secondary hyperparathyroidism. We will continue sevelamer and Sensipar. 3. Continue oral Lasix. She is having good urine output. 4. Hypoalbuminemia. No dietary protein restriction. TSH was okay. We will check a PTH and discontinue the aluminum-magnesium hydroxide. 5. Check labs again in the a.m. Thank you for requesting my opinion in the care and management of this patient. <ELECTRONICALLY SIGNED> By: Tacho Steele MD 11/07/19 1321 1316 1330Tacho Steele MD /nt
[2019-11-07 16:00] VITALS: BP 120/59
--- NOTE | 2019-11-07 17:20 | NUR ---
VSS, A&OX4, NSR ON TELE, UP AD LUIS, PERITONEAL DIALYSIS PATIENT, INSULIN PUMP NOW IN USE BY MIKKI, PT MONITORS HER OWN BG BECAUSE IT COMMUNICATES WITH INSULIN PUMP, HOURLY ROUNDING PERFORMED, POSSESSIONS AND CALL LIGHT WITHIN REACH
[2019-11-07 20:00] VITALS: BP 114/59
[2019-11-08] VITALS: BP 155/64
[2019-11-08 04:00] VITALS: BP 130/67
--- NOTE | 2019-11-08 06:26 | NUR ---
ASSUMED PT CARE AT APPROX 1930. PT IS AWAKE AND ORIENTED X4. MEETING FACILITATOR IS TRACING SR. ASSESSMENT DONE AND CHARTED. PT DENIES PAIN/DISCOMFORT. PERITONEAL DIALYSIS ONGOING- NO ACUTE CHANGES OVERNIGHT. CALL LIGHT WITHIN REACH. HOURLY ROUNDING DONE FOR PT SAFETY.
[2019-11-08 09:16] VITALS: BP 158/74
[2019-11-08 09:40] VITALS: BP 158/74
--- NOTE | 2019-11-08 10:24 | NUR ---
IV AND TELE DISCONTINUED. PT UNDERSTANDS ALL FOLLOW UP ORDERS.
== END 2019-11-08 10:45 | disposition home or self-care (01) | DRG 291 ==
LOC: M.ERS 13:05 → M.2W 14:56 → M.TBA-ER 14:56 → M.2W 16:20
PROVIDERS: Family Medicine; Internal Medicine; Internal Medicine Nephrology; ADMIT Family Medicine
PROC: 3E1M39Z Irrigation of Peritoneal Cavity using Dialysate, Percutaneous Approach (ICD-10-PCS; principal; 2019-11-06)
DX: I13.2 Hypertensive heart and chronic kidney disease with heart failure and with stage 5 chronic kidney disease, or end stage renal disease (principal); N18.6 End stage renal disease; I50.33 Acute on chronic diastolic (congestive) heart failure; E87.1 Hypo-osmolality and hyponatremia; N25.81 Secondary hyperparathyroidism of renal origin; E10.22 Type 1 diabetes mellitus with diabetic chronic kidney disease; I16.0 Hypertensive urgency; E87.70 Fluid overload, unspecified; F41.9 Anxiety disorder, unspecified; E55.9 Vitamin D deficiency, unspecified; E78.5 Hyperlipidemia, unspecified; D63.8 Anemia in other chronic diseases classified elsewhere; E10.65 Type 1 diabetes mellitus with hyperglycemia; I65.29 Occlusion and stenosis of unspecified carotid artery; Z88.8 Allergy status to other drugs, medicaments and biological substances; Z82.49 Family history of ischemic heart disease and other diseases of the circulatory system; Z83.3 Family history of diabetes mellitus

== ENCOUNTER 2020-01-11 17:28 | Inpatient (IN) | payer OTHER, MEDICARE ==
[~2020-01-11] VITALS: Ht 175.3 cm; Wt 134.9 kg
[2020-01-11] VITALS (8 sets, daily range): BP systolic 178–247; BP diastolic 74–110
[~2020-01-11 17:28] MED LIST changes: +CINACALCET HCL90 MG PO; +RENVELA0.8 GM PO; +RENVELA800 MG PO
[2020-01-11 18:00] LABS: URINE BILIRUBIN NEGATIVE (Negative); URINE BLOOD 2+ (Negative); URINE COLOR YELLOW; URINE GLUCOSE-RANDOM 3+ (Negative); URINE KETONES TRACE (Negative); URINE LEUKOCYTES-REFLEX NEGATIVE (Negative); URINE NITRITE-REFLEX NEGATIVE (Negative); URINE PROTEIN 3+ (Negative); URINE SPECIFIC GRAVITY 1.015 (1.005-1.030); URINE UROBILINOGEN 0.2 E.U./dl (0.2-1.0)
[2020-01-11 18:01] LABS: URINE CLARITY HAZY
[2020-01-11 18:01] LABS: HEMATOCRIT 26.1 % (37.0-47.0); HEMOGLOBIN 8.7 gm/dL (12.0-15.0); MCH 33.7 pg (26.0-34.0); MCHC 33.2 g/dL (28.0-37.0); MCV 101.4 fL (80.0-100.0); MPV 8.2 fl. (7.2-11.1); NUCLEATED RBCS 0 /100WBC; PLATELET COUNT* 209 thou/uL (150-400); RBC 2.57 mil/uL (4.20-5.00); RDW-CV 14.1 % (10.5-14.5); WBC 9.8 thou/uL (4.0-11.0)
[2020-01-11 18:08] LABS: SQUAMOUS >10 Many /LPF (0-3); URINE WBC-REFLEX None Seen /HPF (0-5)
[2020-01-11 18:09] LABS: BACTERIA-REFLEX None Seen /HPF (None Seen); CASTS None Seen /LPF (None Seen); CRYSTALS None Seen /LPF (None Seen); URINE RBC 0-2 Rare /HPF (0-2)
[2020-01-11 18:12] LABS: CALCIUM 8.8 mg/dL (8.5-10.1); CREATININE 12.7 mg/dL (0.6-1.3); POTASSIUM 4.2 mmol/L (3.5-5.1)
[2020-01-11 18:13] LABS: ALBUMIN 2.6 g/dL (3.4-5.0); TOTAL PROTEIN 6.5 g/dL (6.4-8.2)
[2020-01-11 18:46] LABS: ABSOLUTE LYMPHOCYTES 1.2 thou/uL (0.8-5.3); ABSOLUTE MONOCYTES 0.3 thou/uL (0.0-1.2); ABSOLUTE NEUTROPHILS 8.3 thou/uL (1.6-8.1); PLATELET ESTIMATE ADEQUATE
[2020-01-11 19:08] LABS: MAGNESIUM 2.1 mg/dL (1.8-2.4); PHOSPHORUS* 8.1 mg/dL (2.5-4.9)
[2020-01-11 22:35] LABS: ALBUMIN 2.5 g/dL (3.4-5.0); CREATININE 13.3 mg/dL (0.6-1.3); MAGNESIUM 2.1 mg/dL (1.8-2.4); PHOSPHORUS* 5.7 mg/dL (2.5-4.9)
[2020-01-12] VITALS (12 sets, daily range): BP systolic 109–183; BP diastolic 57–81
[2020-01-12 05:55] LABS: CALCIUM 9.2 mg/dL (8.5-10.1); CREATININE 12.9 mg/dL (0.6-1.3); PHOSPHORUS* 6.2 mg/dL (2.5-4.9); POTASSIUM 3.2 mmol/L (3.5-5.1)
--- NOTE | 2020-01-12 10:31 | EKG ---
[place] [address] ELECTROCARDIOGRAM REPORT Name: TARA ALLRED Room: [address] ADM [place] [facility].#: [id number] Admission: 01/11/20 Attend Phys: Lyn Cheatham, Discharge: Date of : 80 Date of Service: 01/11/20 1751 Report #: [id number] THIS REPORT FOR: //name// [facility] ED Test Date: 2020-01-11 Test Time: 17:51:37 Pat Name: TARA ALLRED Department: Room: [facility] Gender: F Roll Builder: LEANNA : 1980 Requested By: Jenifer Ferrer Order Number: [id number] MD: Rico De La Cruz Measurements Intervals [place] Rate: 88 P: 47 [place]: 192 QRS: 28 QRSD: 100 T: 98 QT: 421 QTc: 510 Interpretive Statements Sinus rhythm Probable left atrial enlargement Left ventricular hypertrophy Nonspecific T abnormalities, lateral leads ST elev, probable normal early repol pattern Prolonged QT interval Baseline wander in lead(s) II,III,aVF Compared to ECG 11/05/2019 13:51:06 Left ventricular hypertrophy now present ST (T wave) deviation still present Electronically Signed On 01-12-2020 10:31:14 CDT by Rico De La Cruz [email or web address] <ELECTRONICALLY SIGNED> By: Rico De La Cruz MD, [facility] 01/12/20 1031 175 175 Rico De La Cruz MD, [facility] /EPI
[2020-01-12 13:12] LABS: CLARITY CLEAR; SOURCE PERITONEAL; TOTAL VOLUME 120 ml
[2020-01-12 13:16] LABS: BF RBC <1000 /mm3; TOTAL CELL COUNT <20 /mm3
[2020-01-13 03:45] VITALS: BP 154/90
[2020-01-13 04:29] LABS: ABSOLUTE BASOPHILS 0.1 thou/uL (0.0-0.2); ABSOLUTE EOSINOPHILS 0.3 thou/uL (0.0-0.7); ABSOLUTE LYMPHOCYTES 1.4 thou/uL (0.8-5.3); ABSOLUTE MONOCYTES 0.6 thou/uL (0.0-1.2); ABSOLUTE NEUTROPHILS 6.8 thou/uL (1.6-8.1); BASOPHILS 0.8 %; EOSINOPHILS 3.2 %; HEMATOCRIT 28.6 % (37.0-47.0); HEMOGLOBIN 9.8 gm/dL (12.0-15.0); LYMPHOCYTES 14.9 %; MCH 33.4 pg (26.0-34.0); MCHC 34.5 g/dL (28.0-37.0); MCV 96.9 fL (80.0-100.0); MONOCYTES 6.2 %; MPV 7.5 fl. (7.2-11.1); NUCLEATED RBCS 0 /100WBC; PLATELET COUNT* 257 thou/uL (150-400); POLYS 74.9 %; RBC 2.95 mil/uL (4.20-5.00); RDW-CV 13.6 % (10.5-14.5); WBC 9.1 thou/uL (4.0-11.0)
[2020-01-13 04:43] LABS: ALBUMIN 2.3 g/dL (3.4-5.0); ALKALINE PHOSPHATASE 76 U/L (46-116); ANION GAP 10 mmol/L (7-16); BUN 51 mg/dL (7-18); CALCIUM 8.5 mg/dL (8.5-10.1); CHLORIDE 95 mmol/L (98-107); CO2 28 mmol/L (21-32); CREATININE 12.4 mg/dL (0.6-1.3); GLUCOSE 127 mg/dL (70-99); MAGNESIUM 2.2 mg/dL (1.8-2.4); PHOSPHORUS* 6.4 mg/dL (2.5-4.9); POTASSIUM 3.8 mmol/L (3.5-5.1); SGOT 13 U/L (15-37); SGPT 22 U/L (30-65); SODIUM 133 mmol/L (136-145); TOTAL BILIRUBIN 0.8 mg/dL (<0.1-1.0); TOTAL PROTEIN 6.2 g/dL (6.4-8.2)
[2020-01-13 08:29] VITALS: BP 155/81
[2020-01-13 12:40] VITALS: BP 126/63
[2020-01-13 16:02] VITALS: BP 124/62
[2020-01-13 20:00] VITALS: BP 118/72
[2020-01-14 00:42] VITALS: BP 120/52
[2020-01-14 04:00] VITALS: BP 164/83
[2020-01-14 05:38] LABS: GLYCOHEMOGLOBIN (HGB A1C) 8.1 % (4.8-5.6)
[2020-01-14 06:31] LABS: CALCIUM 7.4 mg/dL (8.5-10.1); CREATININE 12.5 mg/dL (0.6-1.3); POTASSIUM 3.7 mmol/L (3.5-5.1)
[2020-01-14 08:00] VITALS: BP 198/100
[2020-01-14] MEDS ORDERED: HUMALOG100 UNIT/1 SUBQ (09:48)
[2020-01-14] MEDS ORDERED: LANTUS SUBQ (09:48)
[2020-01-14 12:08] VITALS: BP 153/85
[2020-01-14 15:25] VITALS: BP 153/85
[2020-01-14 15:39] VITALS: BP 153/85
--- NOTE | 2020-01-27 13:14 | CON ---
[address] [address] CONSULTATION Name: TARA ALLRED Room: [address] IN M.R.#: [id number] Admission: 01/11/20 Attend Phys: Lyn Cheatham MD Discharge: 01/14/20 Date of : 80 Report #: [id number] THIS REPORT FOR: //name// cc: MARVIN Tom family physician/PCP MARVIN - No family physician/PCP ~ THIS REPORT FOR: //name// CC: MARVIN physician/PCP Lyn Cheatham CONSULTING PHYSICIAN: Dr. Lyn Cheatham. REASON FOR CONSULTATION: End-stage kidney disease. HISTORY OF PRESENT ILLNESS: A 39-year-old female, well known to me, who has end-stage kidney disease and is on peritoneal dialysis, was admitted with DKA with blood sugars of 1000. She was admitted back in October with blood sugars around 800 in the setting of a malfunctioning insulin pump. She has been doing well with peritoneal dialysis. She denies any issues or cloudy fluid. No abdominal pain. She was admitted to the ICU, given insulin and is feeling somewhat better now. She is frustrated with her difficulty with insulin pump. She follows with Dr. Serrano who is her outpatient cleaner furniture. Currently, appears to be comfortable and does not have any complaints at this time. REVIEW OF SYSTEMS: Constitutional, psych, heme, eyes, ENT, respiratory, cardiac, GI, , endocrine, all negative except as documented above. PAST MEDICAL HISTORY: End-stage kidney disease, on peritoneal dialysis; diabetes type 1; hypertension; history of detached retina; secondary hyperparathyroidism; anemia of chronic disease; and vitamin D deficiency. FAMILY HISTORY: Not pertinent in this 39-year-old female. SOCIAL HISTORY: No tobacco. CURRENT MEDICATIONS: Reviewed. PHYSICAL EXAMINATION: VITAL SIGNS: Blood pressure is 137/68, pulse 72, respirations 16, temperature 36.6. GENERAL: No acute distress. EYES: Open. EARS: Externally normal. NECK: Supple. CARDIOVASCULAR: Regular rate. LUNGS: Diminished breath sounds. ABDOMEN: Soft. PD catheter intact without [place] [address] CONSULTATION Name: TARA ALLRED Room: [address]#: [id number] Admission: 01/11/20 Attend Phys: Lyn Cheatham MD Discharge: 01/14/20 Date of : 80 Report #: [id number] MUSCULOSKELETAL: Nontender. PSYCHIATRIC: Awake, alert. LABORATORY DATA: White cell count 9.8, hemoglobin 8.7, platelets 209. Sodium 134, potassium 3.2, chloride 94, bicarbonate 25, BUN 57, creatinine 13, glucose 90, calcium 9.2, phosphorus 6.2, magnesium 2. Acetone level was positive on admission. ASSESSMENT: 1. End-stage kidney disease, on peritoneal dialysis. 2. Diabetes, type 1, with diabetic ketoacidosis and blood sugars of 1000 on admission with similar admission in October in the setting of a kink in her insulin pump. 3. Hypertension with an anxiety component. 4. Secondary hyperparathyroidism. 5. Anemia of chronic disease, on outpatient therapy. 6. Vitamin D deficiency. 7. Previous peritoneal dialysis peritonitis with Neisseria species, completed antibiotics on 10/19/2019. PLAN: 1. Hypokalemia, replace potassium. 2. Continue peritoneal dialysis. We will set this up for tonight. 3. For secondary hyperparathyroidism, continue sevelamer and Sensipar. 4. Diabetes management per primary service. 5. We would avoid morphine in the setting of end-stage kidney disease. 6. Continue oral Lasix. 7. We will follow for dialysis needs. Thank you for requesting my opinion in the care and management of this patient. <ELECTRONICALLY SIGNED> By: Tacho Steele MD 01/27/20 1314 1622 [id number] Steele MD /nt
== END 2020-01-14 16:12 | disposition home or self-care (01) | DRG 637 ==
LOC: M.ERS 17:28 → M.TBA-ER 19:03 → M.ICU 19:03 → M.2W 01-13 19:53
PROVIDERS: Internal Medicine; Internal Medicine Nephrology; Personal Emergency Response Attendant; Physician Assistant; ADMIT Internal Medicine; ATTEND Internal Medicine
PROC: 3E1M39Z Irrigation of Peritoneal Cavity using Dialysate, Percutaneous Approach (ICD-10-PCS; principal; 2020-01-12)
DX: E10.10 Type 1 diabetes mellitus with ketoacidosis without coma (principal); N18.6 End stage renal disease; I12.0 Hypertensive chronic kidney disease with stage 5 chronic kidney disease or end stage renal disease; D63.8 Anemia in other chronic diseases classified elsewhere; E55.9 Vitamin D deficiency, unspecified; E10.22 Type 1 diabetes mellitus with diabetic chronic kidney disease; F41.9 Anxiety disorder, unspecified; E21.1 Secondary hyperparathyroidism, not elsewhere classified; Z20.828 Contact with and (suspected) exposure to other viral communicable diseases; Z99.2 Dependence on renal dialysis; Z91.14 Patient's other noncompliance with medication regimen; Z79.4 Long term (current) use of insulin; Z79.899 Other long term (current) drug therapy; Z88.8 Allergy status to other drugs, medicaments and biological substances

== ENCOUNTER 2020-07-27 09:33 | Inpatient (IN) | payer MEDICARE, BC, MEDICAID ==
[~2020-07-27] VITALS: Ht 175.3 cm; Wt 122.9 kg
--- NOTE | ~2020-07-27 | CON ---
[address] [address] CONSULTATION Name: TARA ALLRED Room: [address] IN M.R.#: [id number] Admission: 07/27/20 Attend Phys: Lyn Cheatham MD Discharge: Date of : 80 Report #: [id number] THIS REPORT FOR: cc: Onur Otero Jiten N. DO ~ Tacho Steele MD NEPHROLOGY CONSULTATION REASON FOR CONSULTATION: End-stage kidney disease. CONSULTING PHYSICIAN: Dr. Cheatham. HISTORY OF PRESENT ILLNESS: A 40-year-old female with a history of end-stage kidney disease, on peritoneal dialysis, was admitted with nausea, vomiting and chest pain. She was seen by Cardiology and currently there is some concern that she may have stress ulcers. She has been going through a divorce and going through a lot of stress lately. She is scheduled for an EGD tomorrow. Her PD has been going well. She has no complaints at 2+ liters of ultrafiltration overnight. She currently appears to be comfortable. REVIEW OF SYSTEMS: Constitutional, psych, heme, eyes, ENT, respiratory, cardiac, GI, , endocrine, all negative except as documented above. PAST MEDICAL HISTORY: End-stage kidney disease, hypertension, diabetes type 1. CURRENT MEDICATIONS: Reviewed. SOCIAL HISTORY: No tobacco. FAMILY HISTORY: Not pertinent in this 40-year-old female. CURRENT MEDICATIONS: Reviewed. PHYSICAL EXAMINATION: VITAL SIGNS: Blood pressure is 133/73, pulse 73, temperature 36.9, respirations 16. GENERAL: No acute distress. EYES: Open. EARS: Externally normal. NECK: Supple. CARDIOVASCULAR: Regular rate. LUNGS: No crackles. ABDOMEN: Soft, nontender. MUSCULOSKELETAL: Nontender. PSYCHIATRIC: Awake, [place] [address] CONSULTATION Name: JOCELINEGEETARARhonda HEATON Room: [address]#: [id number] Admission: 07/27/20 Attend Phys: Lyn Cheatham MD Discharge: Date of : 80 Report #: [id number] LABORATORY DATA: White cell count 12, hemoglobin 12, platelets 205. Sodium 136, potassium 2.5, chloride 92, bicarbonate 25, BUN 47, creatinine 16, glucose 201, calcium 11.5, and albumin 3. ASSESSMENT: 1. End-stage kidney disease, on peritoneal dialysis, followed by Dr. Steele as an outpatient. 2. Diabetes type 1 with a history of DKA in the past when she previously had malfunctioning insulin pump. 3. Hypertension with anxiety component secondary hyperparathyroidism, anemia of chronic disease, on outpatient therapy, vitamin D deficiency. Previous peritoneal dialysis peritonitis with Neisseria species completed antibiotics 10/19/2019. PLAN: 1. Hypokalemia, replace potassium. 2. Continue peritoneal dialysis. She had just over 2 liters of ultrafiltration overnight using 2.5 dextrose bath. 3. Secondary hyperparathyroidism. Continue sevelamer. 4. Hypercalcemia. Previous calcium was 9 on 07/03/2020. Her Sensipar was recently increased to 180 mg daily. I will go ahead and order this to continue here. Hypokalemia, has been replaced. We will check lab again in the a.m. Thank you for requesting my opinion in the care and management of this patient. By: 1355 1427Abid Hugo Steele MD /nt
--- NOTE | ~2020-07-27 | PROC ---
[address] [address] PROCEDURE REPORT Name: TARA ALLRED SUDARSHAN Room: [address] IN M.R.#: [id number] Admission: 07/27/20 Attend Phys: Lyn Cheatham MD Discharge: 07/29/20 Date of : 80 Report #: [id number] THIS REPORT FOR: cc: Onur Otero Jiten N. DO ~ [facility],Medical Records Staff For GI report, please see the Provation report in Perceptive 7 content. By: [id number] Records Staff ALFREDO /KARISHMA
[~2020-07-27 09:33] MED LIST changes: +HUMALOG100 UNIT/1 SUBQ; +LANTUS SUBQ
[2020-07-27 09:36] VITALS: BP 255/133
[2020-07-27] MEDS ORDERED: TOPROL XL50 MG PO (09:48)
[2020-07-27] MEDS ORDERED: TOPROL XL50 MG (09:49)
[2020-07-27 10:15] LABS: ABSOLUTE EOSINOPHILS 0.1 thou/uL (0.0-0.7); ABSOLUTE LYMPHOCYTES 0.9 thou/uL (0.8-5.3); ABSOLUTE MONOCYTES 0.5 thou/uL (0.0-1.2); ABSOLUTE NEUTROPHILS 8.5 thou/uL (1.6-8.1); BASOPHILS 0.4 %; EOSINOPHILS 1.1 %; HEMATOCRIT 40.9 % (37.0-47.0); HEMOGLOBIN 13.8 gm/dL (12.0-15.0); LYMPHOCYTES 8.8 %; MCH 32.5 pg (26.0-34.0); MCHC 33.8 g/dL (28.0-37.0); MONOCYTES 4.8 %; MPV 6.9 fl. (7.2-11.1); NUCLEATED RBCS 0 /100WBC; PLATELET COUNT* 243 thou/uL (150-400); POLYS 84.9 %; RBC 4.25 mil/uL (4.20-5.00); RDW-CV 14.8 % (10.5-14.5)
[2020-07-27 10:25] LABS: ANION GAP 19 mmol/L (7-16); BUN 47 mg/dL (7-18); CALCIUM 11.5 mg/dL (8.5-10.1); CHLORIDE 92 mmol/L (98-107); CO2 25 mmol/L (21-32); CREATININE 16.1 mg/dL (0.6-1.3); GLUCOSE 201 mg/dL (70-99); SODIUM 136 mmol/L (136-145)
[2020-07-27 10:27] LABS: POTASSIUM 2.5 mmol/L (3.5-5.1)
[2020-07-27 10:35] LABS: ALKALINE PHOSPHATASE 107 U/L (46-116); LIPASE 51 U/L (73-393); MAGNESIUM 2.3 mg/dL (1.8-2.4); NT-PRO BRAIN NAT PEPTIDE > 35000 pg/mL (<300); SGOT 24 U/L (15-37); SGPT 26 U/L (30-65); TOTAL BILIRUBIN 0.7 mg/dL (<0.1-1.0); TOTAL PROTEIN 7.5 g/dL (6.4-8.2)
[2020-07-27 11:00] LABS: APTT 25.4 Seconds (25.0-31.3); PROTIME 10.5 Seconds (9.20-11.50)
[2020-07-27 14:14] LABS: URINE BILIRUBIN NEGATIVE (Negative); URINE BLOOD 3+ (Negative); URINE COLOR YELLOW; URINE GLUCOSE-RANDOM 1+ (Negative); URINE KETONES NEGATIVE (Negative); URINE LEUKOCYTES-REFLEX NEGATIVE (Negative); URINE NITRITE-REFLEX NEGATIVE (Negative); URINE PROTEIN 3+ (Negative); URINE SPECIFIC GRAVITY 1.025 (1.005-1.030); URINE UROBILINOGEN 0.2 E.U./dl (0.2-1.0)
[2020-07-27 14:18] LABS: URINE CLARITY CLOUDY
[2020-07-27 14:19] LABS: SQUAMOUS >10 Many /LPF (0-3); URINE WBC-REFLEX 6-15 Few /HPF (0-5)
[2020-07-27 14:20] LABS: URINE RBC 3-10 Few /HPF (0-2)
[2020-07-27 14:21] LABS: CASTS None Seen /LPF (None Seen); CRYSTALS None Seen /LPF (None Seen)
[2020-07-27 14:22] LABS: AMP/METHAMP Negative (Negative); BARBITURATES Negative (Negative); BENZODIAZEPINES Negative (Negative); COCAINE Negative (Negative); METHADONE Negative (Negative); OPIATES Negative (Negative); PCP Negative (Negative); THC Negative (Negative)
[2020-07-27 14:44] VITALS: BP 157/79
[2020-07-27 19:55] VITALS: BP 135/68
[2020-07-27 20:00] VITALS: BP 135/68
[2020-07-28 01:13] VITALS: BP 160/70
[2020-07-28 04:55] VITALS: BP 123/68
[2020-07-28 05:05] LABS: ABSOLUTE LYMPHOCYTES 0.8 thou/uL (0.8-5.3); ABSOLUTE MONOCYTES 0.9 thou/uL (0.0-1.2); ABSOLUTE NEUTROPHILS 10.2 thou/uL (1.6-8.1); BASOPHILS 0.2 %; EOSINOPHILS 0.4 %; HEMATOCRIT 36.5 % (37.0-47.0); MCH 32.2 pg (26.0-34.0); MCHC 32.9 g/dL (28.0-37.0); MCV 97.9 fL (80.0-100.0); MONOCYTES 7.5 %; MPV 7.3 fl. (7.2-11.1); NUCLEATED RBCS 0 /100WBC; PLATELET COUNT* 205 thou/uL (150-400); POLYS 84.9 %; RBC 3.73 mil/uL (4.20-5.00); RDW-CV 15.4 % (10.5-14.5)
[2020-07-28 08:00] VITALS: BP 133/73
[2020-07-28 12:00] VITALS: BP 156/76
--- NOTE | 2020-07-28 15:05 | EKG ---
[place] [address] ELECTROCARDIOGRAM REPORT Name: TARA ALLRED Room: [address] ADM IN [facility].#: [id number] Admission: 07/27/20 Attend Phys: Lyn Cheatham, Discharge: Date of : 80 Date of Service: 07/27/20 0938 Report #: [id number] THIS REPORT FOR: //name// [facility] ED Test Date: 2020-07-27 Test Time: 09:38:16 Pat Name: TARA ALLRED Department: Room: [facility] Gender: F Retrimmer: IRIS : 1980 Requested By: Onur Otero Order Number: [id number] MD: Antony Yang Measurements Intervals [place] Rate: 96 P: 63 [place]: 192 QRS: 13 QRSD: 112 T: 132 QT: 399 QTc: 505 Interpretive Statements Sinus rhythm Left atrial enlargement Abnormal R-wave progression, late transition LVH with secondary repolarization abnormality Prolonged QT interval Baseline wander in lead(s) V1,V2,V4,V6 Compared to ECG 01/11/2020 17:51:37 Early repolarization now present T-wave abnormality no longer present ST (T wave) deviation no longer present Electronically Signed On 07-28-2020 15:05:38 ENVIRONMENTAL DEPARTMENT MANAGER by Antony Yang [email or web address] <ELECTRONICALLY SIGNED> By: Antony Yang MD, [facility] 07/28/20 1505 Antony Yang MD, [facility] /EPI
[2020-07-28 16:30] VITALS: BP 109/66
[2020-07-28 20:52] LABS: ALBUMIN 2.4 g/dL (3.4-5.0); POTASSIUM 3.3 mmol/L (3.5-5.1); TOTAL BILIRUBIN 0.3 mg/dL (<0.1-1.0); TOTAL PROTEIN 6.3 g/dL (6.4-8.2)
[2020-07-28 20:54] LABS: CALCIUM 8.1 mg/dL (8.5-10.1); CREATININE 13.9 mg/dL (0.6-1.3)
[2020-07-28 21:00] VITALS: BP 134/79
[2020-07-28 21:37] LABS: APTT 26.1 Seconds (25.0-31.3); PROTIME 10.7 Seconds (9.20-11.50)
[2020-07-29] VITALS: BP 111/60
[2020-07-29 04:00] VITALS: BP 146/97
[2020-07-29 05:22] LABS: HEMATOCRIT 33.9 % (37.0-47.0); HEMOGLOBIN 11.2 gm/dL (12.0-15.0); MCH 32.8 pg (26.0-34.0); MCHC 33.1 g/dL (28.0-37.0); MPV 7.6 fl. (7.2-11.1); RBC 3.42 mil/uL (4.20-5.00); RDW-CV 15.6 % (10.5-14.5); WBC 9.6 thou/uL (4.0-11.0)
[2020-07-29 05:24] LABS: ALBUMIN 2.2 g/dL (3.4-5.0); CALCIUM 7.9 mg/dL (8.5-10.1); CREATININE 13.6 mg/dL (0.6-1.3)
[2020-07-29 05:28] LABS: ALBUMIN 2.2 g/dL (3.4-5.0); CALCIUM 7.9 mg/dL (8.5-10.1); CREATININE 13.6 mg/dL (0.6-1.3); MAGNESIUM 2.5 mg/dL (1.8-2.4); TOTAL BILIRUBIN 0.3 mg/dL (<0.1-1.0); TOTAL PROTEIN 5.7 g/dL (6.4-8.2)
[2020-07-29 08:00] VITALS: BP 126/69
[2020-07-29] MEDS ORDERED: ASA81BEC PO (09:35)
[2020-07-29] MEDS ORDERED: HUMALOG100 UNIT/1 SUBQ (09:35)
[2020-07-29 11:07] VITALS: BP 126/69
[2020-07-29] MEDS ORDERED: PROTONIX40 M2 PO ×2 (15:47→15:53)
--- NOTE | 2020-07-29 16:04 | 2DMMODE ---
[place] [address] 2 D/M-MODE ECHOCARDIOGRAM Name: TARA ALLRED Room: [address] IN .Priya.#: [id number] Admission: 07/27/20 Attend Phys: Lyn Cheatham, Discharge: Date of : 80 Date of Service: 07/29/20 1604 Report #: [id number] THIS REPORT FOR: cc: Onur Otero Jiten N. DO Blick, David R. MD [facility] ~ APPROVED REPORT Study performed: 07/29/2020 14:25:49 EXAM: Comprehensive 2D, Doppler, and color-flow Echocardiogram Patient Location: In-Patient Room #: [facility] Status: routine BSA: 2.35 HR: 68 bpm BP: 146/97 mmHg Rhythm: NSR Other Information Study Quality: Excellent Indications Congestive Heart Failure 2D Dimensions IVSd: 19.62 (7-11mm) LVOT Diam: 18.02 (18-24mm) LVDd: 43.75 mm PWd: 16.78 (7-11mm) Ascending Ao: 33.33 (22-36mm) LVDs: 32.93 (25-40mm) Aortic Root: 27.92 mm Volumes Left Atrial Volume (Systole) LA ESV Index: 35.60 mL/m2 Aortic Valve AoV Peak Milton.: 1.65 m/s AO Peak Gr.: 10.89 mmHg LVOT Max P.74 mmHg AO Mean Gr.: 5.59 mmHg LVOT Mean P.61 mmHg LVOT Max V: 1.20 m/s AO V2 VTI: 26.92 cm LVOT Mean V: 0.72 m/s ROSEMARIE (VTI): 2.03 cm2 LVOT V1 VTI: 21.45 [place] [address] 2 D/M-MODE ECHOCARDIOGRAM Name: TARA ALLRED Room: [address] IN ..#: [id number] Admission: 07/27/20 Attend Phys: Lyn Cheatham, Discharge: Date of : 80 Date of Service: 07/29/20 1604 Report #: [id number] Mitral Valve E/A Ratio: 2.06 MV Decel. Time: 190.62 ms MV E Max Milton.: 0.97 m/s MV PHT: 55.28 ms MVA (PHT): 3.98 cm2 TDI E/Lateral E': 16.17 E/Medial E': 13.86 Medial E' Milton.: 0.07 m/s Lateral E' Milton.: 0.06 m/s Pulmonary Valve PV Peak Milton.: 1.00 m/s PV Peak Gr.: 4.02 mmHg Tricuspid Valve RAP Estimate: 5.00 mmHg TR Peak Gr.: 30.79 mmHg RVSP: 35.00 mmHg PA Pressure: 35.00 mmHg Left Ventricle The left ventricle is normal size. There is global hypokinesis of the left ventricle. Moderate to severe concentric left ventricular hypertrophy. Left ventricular systolic function is mildly decreased. LVEF is 40-45%. Grade IV - fixed restrictive diastolic dysfunction. Right Ventricle The right ventricle is normal size. The right ventricular systolic function is normal. Atria Left atrium is mildly dilated. The right atrium size is normal. Aortic Valve The aortic valve is normal in structure. No aortic regurgitation is present. There is no aortic valvular stenosis. Mitral Valve There is mitral annular calcification. The mitral valve is normal in structure. Mild mitral regurgitation. No evidence of mitral valve stenosis. Tricuspid Valve The tricuspid valve is normal in structure[place] [address] 2 D/M-MODE ECHOCARDIOGRAM Name: TARA ALLRED Room: [address] IN [facility]#: [id number] Admission: 07/27/20 Attend Phys: Lyn Cheatham, Discharge: Date of : 80 Date of Service: 07/29/20 1604 Report #: [id number] regurgitation. estimated pa pressure 40 mm Hg Pulmonic Valve The pulmonary valve is normal in structure. Mild pulmonic regurgitation. Great Vessels The aortic root is normal in size. IVC is normal in size and collapses >50% with inspiration. Pericardium There is no pericardial effusion. <Conclusion> Moderate to severe concentric left ventricular hypertrophy. LVEF is 40-45%. Left atrium is mildly dilated. Mild mitral regurgitation. Mild tricuspid regurgitation. estimated pa pressure 40 mm Hg <ELECTRONICALLY SIGNED> By: Rico De La Cruz MD, FACC 07/29/20 1604 1604 1604 Rico De La Cruz MD, FACC /INF
[2020-07-29 16:10] VITALS: BP 126/69
[2020-07-29 16:14] VITALS: BP 125/72
--- NOTE | 2020-07-30 09:24 | CON ---
[address] [address] CONSULTATION Name: TARA ALLRED Room: [address] IN .R.#: [id number] Admission: 07/27/20 Attend Phys: Lyn Cheatham MD Discharge: 07/29/20 Date of : 80 Report #: [id number] THIS REPORT FOR: cc: Onur Otero Jiten N. DO ~ Antony Yang MD [facility] INDICATION: Chest pain. HISTORY OF PRESENT ILLNESS: The patient is a very pleasant 40-year-old white female who is well known to us. She has a history of end-stage renal disease and is on peritoneal dialysis with which she is doing well. She has cardiac risk factors including hypertension, dyslipidemia and insulin-requiring diabetes. Calcium score approximately 2-1/2 years ago was 0. She has had previous stress testing that was unremarkable. She presents with complaints of burning chest discomfort radiating from the upper stomach area and epigastrium to the chest. She had partial relief with a GI cocktails. She has been taking Protonix 40 mg daily at home. She states she has had difficulty eating as this exacerbates the discomfort. She denies any significant shortness of breath, diaphoresis or radiation of the discomfort beyond the mid epigastrium and sternal area. She is without other cardiac complaint at this time. PAST MEDICAL HISTORY: Significant for: 1. End-stage renal disease, on peritoneal dialysis. 2. Insulin requiring type 1 diabetes. 3. Hypertension. 4. Right eye surgery x 3. 5. History of detached retinas in the past. 6. Hyperlipidemia. CURRENT MEDICATIONS: Metoprolol succinate 150 mg b.i.d., nifedipine XL 90 mg daily, vitamin D3 2000 units daily, furosemide 80 mg daily, alprazolam 0.25 mg q.i.d. p.r.n., Renvela 800 mg p.o. daily, cinacalcet hydrochloride 90 mg daily, Protonix 40 mg daily, atorvastatin 20 mg daily, insulin as directed. ALLERGIES: LISINOPRIL AND PROMETHAZINE. SOCIAL HISTORY: The patient does not drink alcohol. She does not smoke. FAMILY HISTORY: Noncontributory. Positive for anorexia, dyspepsia, nausea without vomiting, dyspnea on exertion without shortness of breath, chest discomfort as outlined above, [place] [address] CONSULTATION Name: TARA ALLRED Room: [address]#: [id number] Admission: 07/27/20 Attend Phys: Lyn Cheatham MD Discharge: 07/29/20 Date of : 80 Report #: [id number] 14-point review of systems was unremarkable. PHYSICAL EXAMINATION: VITAL SIGNS: Blood pressure 133/73, pulse is 73 and regular. GENERAL: This is a pleasant young lady in no distress. Mood and affect appropriate. HEENT: Extraocular muscles intact. The right eye is injected. Mucous membranes moist. NECK: Shows no jugular venous distention. There are no carotid bruits. CHEST: Reveals clear lung robertson without wheezes or rales. CARDIAC: Reveals a regular rhythm without gallop or murmur. ABDOMEN: Reveals normal bowel sounds. The abdomen is soft and nontender. EXTREMITIES: Shows no edema. SKIN: Dry. A 12-lead EKG shows sinus rhythm with left ventricular hypertrophy with repolarization abnormalities. Labs are reviewed. Troponin on admission was 0.13, then less than 0.6 and then 0.15. IMPRESSION AND RECOMMENDATION: 1. Chest pain. Symptoms most consistent with a gastrointestinal source. The patient is scheduled for esophagogastroduodenoscopy tomorrow. I would not plan further evaluation unless esophagogastroduodenoscopy is unremarkable in which case, I would consider stress testing. 2. Elevated troponin secondary to end-stage renal disease with diminished clearance. 3. Hypertension. Blood pressure is significantly elevated on arrival, improved with resumption of home medications. 4. Dyslipidemia. RECOMMENDATION: 1. Continue atorvastatin. 2. End-stage renal disease, continuing peritoneal dialysis. She has been doing well on this. 3. Insulin-dependent diabetes per primary physician. <ELECTRONICALLY SIGNED> By: Antony Yang MD, FACC 07/30/20 0924 1302 1323Micabby Yang MD, FACC /nt
--- NOTE | 2020-07-31 13:24 | CON ---
[address] [address] CONSULTATION Name: TARA ALLRED Room: [address] IN M.R.#: [id number] Admission: 07/27/20 Attend Phys: Lyn Cheatham MD Discharge: 07/29/20 Date of : 80 Report #: [id number] THIS REPORT FOR: cc: Onur Otero Jiten N. DO ~ Evan Beltran MD DATE OF SERVICE: 07/28/2020 REASON FOR CONSULT: Persistent acid reflux, nausea, vomiting and chest pain. HISTORY OF PRESENT ILLNESS: This is a 40-year-old female with history of type 1 diabetes mellitus, who was admitted to hospital with chest pain. The patient reports that she has been taking Protonix for the past couple of years, but continues to have heartburn. She denies any lower GI symptoms and reports that with her regimen, her stools are daily and somewhat loose. She denies any dysphagia or odynophagia, but reports that she occasionally has nausea and vomiting. PAST MEDICAL HISTORY: Significant for: 1. History of type 1 diabetes mellitus. 2. Chronic renal insufficiency. 3. Gastroesophageal reflux disease. 4. Dyslipidemia. 5. Hypertension. 6. History of eye surgery. 7. Bilateral detached retina. 8. Peritoneal dialysis. ALLERGIES: SIGNIFICANT TO LISINOPRIL AND PHENERGAN. MEDICATIONS: Please refer to MAR. SOCIAL HISTORY: The patient denies tobacco or alcohol use. She has type 1 diabetes. FAMILY HISTORY: Noncontributory. PHYSICAL EXAMINATION: VITAL SIGNS: Reveals blood pressure of 133/73, respirations 16, pulse 73, temperature 97.4. LUNGS: Clear. CARDIOVASCULAR: Regular rate and rhythm. ABDOMEN: Soft, nontender, nondistended. Bowel sounds are positive. NEUROLOGIC: The patient is alert and oriented x 3[place] [address] CONSULTATION Name: TARA ALLRED Room: [address]#: [id number] Admission: 07/27/20 Attend Phys: Lyn Cheatham MD Discharge: 07/29/20 Date of : 80 Report #: [id number] neurologic deficit. LABORATORY DATA: Labs reveal sodium of 136, potassium 3.1, BUN is 47, creatinine is 16.1, glucose is 201, AST is 24, ALT 26, alkaline phosphatase is 107, total bilirubin is 0.7, calcium is 11.5. WBC is 12, hemoglobin 12 with platelet count of 205. IMAGING: Chest x-ray was done, which showed moderate cardiomegaly without any acute abnormalities. ASSESSMENT AND PLAN: The patient with history of gastroesophageal reflux disease and type 1 diabetes, who occasionally has nausea and vomiting and has persistent reflux and noncardiac chest pain, even on daily Protonix, which she has been on for the past 2 years. We will proceed with upper endoscopy to further evaluate her upper GI symptoms. I will make further recommendation based on endoscopic finding. The patient is agreeable with plan. <ELECTRONICALLY SIGNED> By: Evan Beltran MD 07/31/20 1324 1103 1119Evan Beltran MD /nt
== END 2020-07-29 17:00 | disposition home or self-care (01) | DRG 391 ==
LOC: M.ERS 09:33 → M.TBA-ER 12:08 → M.2W 12:08
PROVIDERS: Emergency Medicine Emergency Medical Services; Internal Medicine; Internal Medicine Nephrology; ADMIT Internal Medicine; ATTEND Internal Medicine
PROC: 3E1M39Z Irrigation of Peritoneal Cavity using Dialysate, Percutaneous Approach (ICD-10-PCS; principal; 2020-07-29)
PROC: 0DH98UZ Insertion of Feeding Device into Duodenum, Via Natural or Artificial Opening Endoscopic (ICD-10-PCS; principal; 2020-07-29)
DX: K21.00 Gastro-esophageal reflux disease with esophagitis, without bleeding (principal); N18.6 End stage renal disease; N25.81 Secondary hyperparathyroidism of renal origin; I16.1 Hypertensive emergency; I12.0 Hypertensive chronic kidney disease with stage 5 chronic kidney disease or end stage renal disease; E87.6 Hypokalemia; Z20.822 Contact with and (suspected) exposure to COVID-19; E10.22 Type 1 diabetes mellitus with diabetic chronic kidney disease; E78.5 Hyperlipidemia, unspecified; F41.9 Anxiety disorder, unspecified; D63.8 Anemia in other chronic diseases classified elsewhere; H54.61 Unqualified visual loss, right eye, normal vision left eye; E55.9 Vitamin D deficiency, unspecified; K44.9 Diaphragmatic hernia without obstruction or gangrene; Z79.82 Long term (current) use of aspirin; Z88.8 Allergy status to other drugs, medicaments and biological substances; Z79.899 Other long term (current) drug therapy; Z99.2 Dependence on renal dialysis

== ENCOUNTER → 2020-07-31 | Outpatient (CLI) | payer MEDICARE, BC, MEDICAID ==
[~2020-07-31] MED LIST changes: +ASA81BEC PO; +PROTONIX40 M2 PO; +TOPROL XL50 MG; +TOPROL XL50 MG PO
[2020-08-01 02:06] LABS: GLYCOHEMOGLOBIN (HGB A1C) 6.5 % (4.8-5.6)
== END ==
LOC: M.NUC 07-30 09:41 → M.LAB 11:30 → M.NUC 12:00
PROVIDERS: ATTEND Internal Medicine Gastroenterology
DX: K20.90 Esophagitis, unspecified without bleeding (principal); K44.9 Diaphragmatic hernia without obstruction or gangrene; Z79.899 Other long term (current) drug therapy

== ENCOUNTER 2020-10-28 19:37 | Emergency (ER) | payer MEDICARE, BC, MEDICAID ==
[~2020-10-28] VITALS: Ht 175.3 cm; Wt 127.0 kg
[2020-10-28 20:34] LABS: ABSOLUTE BASOPHILS 0.1 thou/uL (0.0-0.2); ABSOLUTE EOSINOPHILS 0.3 thou/uL (0.0-0.7); ABSOLUTE LYMPHOCYTES 0.7 thou/uL (0.8-5.3); ABSOLUTE MONOCYTES 0.6 thou/uL (0.0-1.2); ABSOLUTE NEUTROPHILS 7.2 thou/uL (1.6-8.1); BASOPHILS 0.8 %; EOSINOPHILS 2.9 %; HEMATOCRIT 28.6 % (37.0-47.0); HEMOGLOBIN 9.6 gm/dL (12.0-15.0); LYMPHOCYTES 7.4 %; MCH 32.1 pg (26.0-34.0); MCHC 33.5 g/dL (28.0-37.0); MCV 95.9 fL (80.0-100.0); MPV 7.7 fl. (7.2-11.1); NUCLEATED RBCS 0 /100WBC; PLATELET COUNT* 185 thou/uL (150-400); POLYS 81.9 %; RBC 2.99 mil/uL (4.20-5.00); RDW-CV 15.1 % (10.5-14.5); WBC 8.8 thou/uL (4.0-11.0)
[2020-10-28 20:43] LABS: CREATININE 14.1 mg/dL (0.6-1.3); POTASSIUM 3.3 mmol/L (3.5-5.1)
[2020-10-28 20:47] LABS: ALBUMIN 2.8 g/dL (3.4-5.0); TOTAL BILIRUBIN 0.6 mg/dL (<0.1-1.0); TOTAL PROTEIN 7.2 g/dL (6.4-8.2)
[2020-10-28] MEDS ORDERED: ZOFRAN ODT4 MG DISSOLVE (21:10)
[2020-10-28 21:27] VITALS: BP 168/108
--- NOTE | 2020-10-29 09:02 | EKG ---
[place] [address] ELECTROCARDIOGRAM REPORT Name: TARA ALLRED Room: [facility]#: [id number] Admission: 10/28/20 Attend Phys: Discharge: 10/28/20 Date of : 80 Date of Service: 10/28/201956 Report #: [id number] THIS REPORT FOR: //name// [facility] ED Test Date: 2020-10-28 Test Time: 19:57:20 Pat Name: TARA ALLRED Department: Room: Gender: F Laser/Electro Optics Technician: MS : 1980 Requested By: Villa Maloney Order Number: [id number] MD: Antony Yang Measurements Intervals [place] Rate: 79 P: 61 MN: 245 QRS: 22 QRSD: 104 T: 150 QT: 458 QTc: 526 Interpretive Statements Sinus rhythm Prolonged MN interval Left atrial enlargement Abnormal R-wave progression, late transition LVH with secondary repolarization abnormality Minimal ST elevation, lateral leads Prolonged QT interval Compared to ECG 07/27/2020 09:38:16 First degree AV block now present ST (T wave) deviation now present Electronically Signed On 10-29-2020 9:02:49 CDT by Antony Yang [email or web address] <ELECTRONICALLY SIGNED> By: Antony Yang MD, [facility] 10/29/20901 56 56 Antony Yang MD, [facility] /EPI
== END 2020-10-28 21:27 | disposition home or self-care (01) ==
LOC: M.ERS 19:37
PROVIDERS: Family Medicine
DX: R11.2 Nausea with vomiting, unspecified (principal); I12.0 Hypertensive chronic kidney disease with stage 5 chronic kidney disease or end stage renal disease; N18.6 End stage renal disease; E10.22 Type 1 diabetes mellitus with diabetic chronic kidney disease; Z99.2 Dependence on renal dialysis; Z98.890 Other specified postprocedural states; Z88.8 Allergy status to other drugs, medicaments and biological substances

== ENCOUNTER 2021-01-16 17:13 | Emergency (ER) | payer MEDICARE, BC, MEDICAID ==
[~2021-01-16] VITALS: Ht 175.3 cm; Wt 126.0 kg
[~2021-01-16 17:13] MED LIST changes: +ZOFRAN ODT4 MG DISSOLVE
[2021-01-16 18:41] LABS: CALCIUM 9.2 mg/dL (8.5-10.1); CREATININE 13.5 mg/dL (0.6-1.3); MAGNESIUM 1.9 mg/dL (1.8-2.4)
[2021-01-16] MEDS ORDERED: FLEXERIL PO (18:53)
[2021-01-16] MEDS ORDERED: NORCO5 PO ×2 (18:53→19:03)
[2021-01-16 19:32] VITALS: BP 260/116
== END 2021-01-16 19:34 | disposition home or self-care (01) ==
LOC: M.ERS 17:13
PROVIDERS: Physician Assistant
DX: M54.32 Sciatica, left side (principal); R25.2 Cramp and spasm; I13.11 Hypertensive heart and chronic kidney disease without heart failure, with stage 5 chronic kidney disease, or end stage renal disease; E10.22 Type 1 diabetes mellitus with diabetic chronic kidney disease; N18.6 End stage renal disease; Z99.2 Dependence on renal dialysis; Z88.8 Allergy status to other drugs, medicaments and biological substances; Z98.890 Other specified postprocedural states

== ENCOUNTER → 2021-03-10 | Day surgery (SDC) | payer MEDICARE, BC, MEDICAID ==
[~2021-03-10] MED LIST changes: +FLEXERIL PO; +HUMULIN N100 UNIT/3 SUBQ; +LOPRESSOR50 MG PO; +MEDICAL MARIJUANA; +NIFEDIPINE ER90 MG PO; +NORCO5 PO; +ROXICODONE5 M2 PO; +SENSIPAR60 MG PO; +VELPHORO500 MG PO
--- NOTE | ~2021-03-10 | OP ---
[address] [address] OPERATIVE REPORT Name: TARA SMITH Room: [facility]#: [id number] Admission: 03/10/21 Attend Phys: Alberto Wallace DO Discharge: Date of : 80 Report #: [id number] THIS REPORT FOR: cc: Michelle Davidson,Alberto Stein DO ~ cc: Michelle Davidson DO DATE OF SURGERY: 03/10/2021 REFERRING PHYSICIAN: Michelle Davidson DO PREOPERATIVE DIAGNOSES: Renal failure and a failing peritoneal dialysis catheter. POSTOPERATIVE DIAGNOSES: Renal failure and a failing peritoneal dialysis catheter plus intraabdominal adhesions and umbilical hernia with incarcerated omentum within it. PROCEDURE: Laparoscopic placement of peritoneal dialysis catheter and lysis of adhesions lasting 30 minutes and removal of old catheter. SURGEON: Alberto Wallace DO BRIQUETTE MAKER: Jv Armendariz DO ANESTHESIA: General endotracheal. ESTIMATED BLOOD LOSS: Less than 20 mL. SPECIMENS: None. DESCRIPTION OF PROCEDURE: After obtaining proper consents and discussing risks and complications with the patient, she was taken to the operating room, laid in the supine position and administered general anesthesia. She was then prepped and draped in the usual sterile fashion. A timeout was performed. We confirmed the appropriate patient and procedure. Preoperative antibiotics had been given. SCDs were in place. We then made a small incision around the patient's previously placed peritoneal dialysis catheter. I then used blunt dissection as well as sharp dissection with Metzenbaum scissors in order to remove the entire catheter including the one remaining cuff that was still within the subcutaneous tissues of the abdominal wall. Once this was complete, I then was able to remove the entire catheter. We then used a 5 mm Visiport to enter the abdominal cavity at Stanley's point in the left upper quadrant. Once within the peritoneal cavity, insufflation was begun. Once insufflation was complete, full visual inspection of the intra-abdominal organs was performed. [place] [address] OPERATIVE REPORT Name: TARA SMITH Room: [facility].#: [id number] Admission: 03/10/21 Attend Phys: Alberto Wallace DO Discharge: Date of : 80 Report #: [id number] adhesions along the left upper quadrant. There was also noted to be some omentum stuck up into what appeared to be a hernia in the midline at the area of the umbilicus. Some of this omentum was easily reduced out; however, there were some firmer attachments, so we placed another 5 mm left lower quadrant trocar under direct vision. I was then able to use electrocautery to take down the adhesions to both the umbilical hernia area as well as the left upper quadrant. Once this was all freed up, we then placed an 8 mm trocar in the right lower quadrant. Then, through the 8 mm trocar, we placed a pigtail peritoneal dialysis catheter. We then removed the 8.5 mm trocar, leaving the catheter partially within the abdominal cavity with the inner cuff between the posterior and anterior rectus fascia. I then tunneled the catheter out further to the right side and used a tunneling device to assure that the second cuff was within the subcutaneous tissues. We then instilled a heparinized saline solution into the abdominal cavity, about 700 mL were instilled and then the backdrop to the floor and immediately, we were able to get 400 mL of fluid back. We then capped the peritoneal dialysis catheter. We then removed all the trocars under direct vision. I closed the trocar sites using 4-0 Monocryl subcuticular stitches. The patient was then awakened in the operating room and transported to recovery room in stable condition. By: [id number] Wallace DO /cristina
--- NOTE | 2021-03-10 12:08 | EKG ---
[place] [address] ELECTROCARDIOGRAM REPORT Name: TARA SMITH Room: [facility]#: [id number] Admission: 03/10/21 Attend Phys: Alberto Wallace DO Discharge: Date of : 80 Date of Service: 03/10/21 1156 Report #: [id number] THIS REPORT FOR: //name// [facility] Test Date: 2021-03-10 Test Time: 11:56:39 Pat Name: TARA SMITH Department: Room: Gender: F Senior Policy Analyst: CARLOS ENRIQUE : 1980 Requested By: Alberto Wallace Order Number: [id number] Reading MD: Rico De La Cruz Measurements Intervals [place] Rate: 80 P: 57 OR: 189 QRS: 37 QRSD: 106 T: 158 QT: 419 QTc: 484 Interpretive Statements Sinus rhythm Left atrial enlargement Abnormal R-wave progression, late transition LVH with secondary repolarization abnormality Compared to ECG 10/28/2020 19:57:20 First degree AV block no longer present Prolonged QT interval no longer present Electronically Signed On 03-10-2021 12:08:07 CDT by Rico De La Cruz [email or web address] <ELECTRONICALLY SIGNED> By: Rico De La Cruz MD, [facility] 03/10/21 1208 1156 1156 Rico De La Cruz MD, [facility] /EPI
[2021-03-10 12:16] LABS: HEMOGLOBIN 9.5 gm/dL (12.0-15.0); MCH 32.2 pg (26.0-34.0); MCHC 33.9 g/dL (28.0-37.0); MCV 94.9 fL (80.0-100.0); MPV 7.4 fl. (7.2-11.1); RBC 2.95 mil/uL (4.20-5.00); RDW-CV 15.1 % (10.5-14.5); WBC 9.6 thou/uL (4.0-11.0)
[2021-03-10 12:58] LABS: CALCIUM 9.8 mg/dL (8.5-10.1); CREATININE 14.4 mg/dL (0.6-1.3); POTASSIUM 3.5 mmol/L (3.5-5.1)
[2021-03-10 13:02] LABS: ALBUMIN 2.5 g/dL (3.4-5.0)
[2021-03-10 13:12] LABS: TOTAL BILIRUBIN 0.6 mg/dL (<0.1-1.0); TOTAL PROTEIN 6.1 g/dL (6.4-8.2)
== END | disposition home or self-care (01) ==
LOC: M.SUR 11:27
PROVIDERS: ATTEND Surgery
DX: T85.691A Other mechanical complication of intraperitoneal dialysis catheter, initial encounter (principal); I12.0 Hypertensive chronic kidney disease with stage 5 chronic kidney disease or end stage renal disease; E11.22 Type 2 diabetes mellitus with diabetic chronic kidney disease; I25.10 Atherosclerotic heart disease of native coronary artery without angina pectoris; N18.6 End stage renal disease; K42.9 Umbilical hernia without obstruction or gangrene; K66.0 Peritoneal adhesions (postprocedural) (postinfection); Z98.890 Other specified postprocedural states; Z79.899 Other long term (current) drug therapy; Z20.822 Contact with and (suspected) exposure to COVID-19; Y83.8 Other surgical procedures as the cause of abnormal reaction of the patient, or of later complication, without mention of misadventure at the time of the procedure